=== PATIENT | female | born 1960 | race Caucasian/White ===

== ENCOUNTER 2016-08-03 22:05 | Emergency (ER) | payer BC ==
[2016-08-03 22:49] LABS: Hematocrit 42.6 % (37.0-47.0); Hemoglobin 14.1 gm/dL (12.5-16.0); Mean Cell Volume 85.7 fl (78-100); Mean Corpuscular Hemoglobin 28.4 pg (27-31); Mean Corpuscular Hgb Conc 33.1 g/dl (32-36); Mean Platelet Volume 9.4 fl (6.0-9.5); Neutrophil # 10.5 K/mm3 (1.3-6.0); Neutrophil % 69.7 % (42-75.0); Platelet Count 344 K/mm3 (150-450); Red Blood Count 4.97 M/mm3 (4.2-5.4); Red Cell Distribution Width 13.8 % (11.5-14.0)
[2016-08-03 23:08] LABS: Troponin I Less than 0.017 ng/ml (0.00-0.10)
[2016-08-03 23:12] LABS: ALT 33 U/L (19-67); AST 20 U/L (0-48); Albumin * 3.7 gm/dl (3.4-5.0); Alkaline Phosphatase * 111 U/L (50-170); Anion Gap 11.4 mmol/L (6.8-13.8); BUN/Creatinine Ratio 24.3 (9.0-21.6); Bilirubin, Total 0.1 mg/dL (0.0-1.1); Blood Urea Nitrogen 17 mg/dL (3-23); CK Total * 70 U/L (0-259); Ca. Corrected For Albumin 9.7 mg/dL (8.4-10.2); Calcium * 9.8 mg/dL (7.9-10.9); Carbon Dioxide 28.3 mmol/L (24-32.6); Chloride 105 mmol/L (97-106); Glucose * 119 mg/dL (70-110); Potassium 3.7 mmol/L (3.4-4.6); Sodium 141 mmol/L (132-142); Total Protein 8.1 gm/dL (6.2-8.2)
--- OUTSIDE RECORDS SUMMARY | 2016-08-03 23:19 | XMS REPORT | Continuity of Care Document ---
:1960 Author Organization [facility] ([facility]) Address [place] [address] Phone [phone] Care Team Providers Name Role Phone Provider, No-Primary Care Primary Care Provider Unavailable Source Comments This disclosure is being made pursuant to the Care Everywhere program, applicable federal and state laws, and may not contain all informaitonavailable regarding this patient.[facility] ([facility]) Active Allergies and Adverse Reactions Allergen Noted Date Severity Reactions Comments Erythromycin 10/01/2010 Nausea & Vomiting Current Medications Prescription Sig. Disp. Refills Start Date End Date Status LEVOTHYROXINE SODIUM Take 125 mcg by Active (SYNTHROID PO) mouth daily. Oval light pink or peach pill-patient unsure of dose aspirin 325 mg EC Take 1 Tab by mouth 60 Tab 0 12/10/2011 Active tablet daily. Indications: PAIN oxyCODONE-acetaminoph Take 1-2 Tabs by 80 Tab 0 12/22/2011 Active en 5-325 mg per mouth every 6 hours tablet as needed for Pain. Do Not exceed 4000 mg of acetaminophen per 24 hours. Indications: PAIN hydrOXYzine pamoate Take 1-2 Caps by 80 Cap 0 12/22/2011 Active (VISTARIL) 25 mg mouth every 6 hours capsule as needed for Other (pain). Indications: ANXIETY HYDROCODONE Take 5-325 mg by Active BIT/ACETAMINOPHEN mouth. (HYDROCODONE-ACETAMIN OPHEN PO) HYDROcodone-acetamino Take 1-2 tablets by 20 tablet 0 03/18/2015 Active phen 5-325 mg per mouth every 6 hours tablet as needed for pain. ondansetron 4 mg Dissolve 1 tablet 6 tablet 2 03/18/2015 Active disintegrating tablet (4 mg total) on or under the tongue every 6 hours as needed for nausea. Active Problems Problem Noted Date Shoulder pain 12/10/2011 Social History Tobacco Use Types Packs/Day Years Used Date Current Every Day Smoker 0.25 Smokeless Tobacco: Never Used Tobacco Cessation:Ready to Quit: No; Counseling Given: No Comments: Last Filed Vital Signs Vital Sign Reading Time Taken Blood Pressure 143/61 03/18/2015 9:13 AM CDT Pulse 76 03/18/2015 7:11 AM CDT Temperature 36.2 C (97.2 F) 03/18/2015 7:11 AM CDT Respiratory Rate 24 03/18/2015 7:11 AM CDT Height 1.6 m (5' 3") 12/10/2011 6:23 PM CDT Weight 65.772 kg (145 lb) 12/10/2011 6:23 PM CDT Body Mass Index 25.69 12/10/2011 6:23 PM CDT Oxygen Saturation 98% 03/18/2015 7:11 AM CDT Plan of Care Health Maintenance Due Date Last Done Comments HCV Screening 1960 Hepatitis B Vaccine (1 of 3 - Primary Series) 1960 Tdap Vaccine 1970 Lipid Disorder Screening 1977 MMR Vaccine 1977 Td Vaccine 1977 Pneumococcal Vaccine (1 of 1 - PPSV23) 1978 Cervical Cancer Screening 1989 Mammogram 1999 Colonoscopy 06/14/2009 Influenza Vaccine: Seasonal (#1) 12/31/2015 Results from Last 3 Months Not on file
--- NOTE | 2016-08-03 23:29 | ERNOTE ---
Chest Pain/Cardiac HPI Date of Service: 08/03/16 Chief Complaint: Palpitations Time Seen by Provider: 08/03/16 23:00 Immunizations: IMMUNIZATION HX Immunizations Up to Date Yes History of Influenza Vaccine Yes Allergies/Adverse Reactions: Allergies No Known Allergies Allergy (Unverified 08/03/16 22:22) Home Medications: HOME MEDICATIONS Aspirin [Aspirin Chewable] 81 mg PO DAILY 08/03/16 [Last Taken Unknown] Atorvastatin Calcium 20 mg PO HS 08/03/16 [Last Taken Unknown] Levothyroxine Sodium [Levo-T] 112 mcg PO DAILY 08/03/16 [Last Taken Unknown] Metformin HCl [Metformin HCl ER] 500 mg PO DAILY 08/03/16 [Last Taken Unknown] buPROPion HCL [Wellbutrin XL] 150 mg PO DAILY 08/03/16 [Last Taken Unknown] Narrative: PT SAYS THAT SHE WAS SITTING AT HOME ABOUT 2049 WHEN SHE HAS A FUNNY FEELING OVER HER BODY WITH NUMBNESS IN HER RIGHT JAW AREA AND FILLING FLUSHED ALL OVER . STATES SHE FELT WARM BUT NOT SWEATY AND WAS LIGHT HEADED. NO CHEST PAIN OR SOB. SHE FELT FOR HER PULSE AND THOUGHT IT FELT FAST BUT DID NOT COUNT IT. SHE TOOK HER BP SAYS IT WAS 200/100 BUT SHE DID NOT NOTE THE PULSE RATE. SHE SAYS SHE WAS JUST STARTED ON MEDS THIS PAST THURSDAY, 5 DAYS AGO. SEE THE MED LIST. SHE SAYS THAT HER BGM AT 1999 WAS 107 ( EMT REPORT ACCUCHECK OF 144 WHEN THEY ARRIVED. HER RECENT EVALUATION BY PCP ALSO SHOWED <50% NARROWING OF RIGHT CAROTID ARTERY. SHE STATES HER SYMPTOMS LASTED ABOUT 10-15 MINS. NOW SHE JUST FEELS TIRED. HER NORMAL BEDTIME IS 2200 Timing: resolved prior to arrival Severity/Quality: moderate Prior Treatment: Reports: recently seen, treated by physician Review of Systems - Review of Systems Constitutional: Present: See HPI EYE: Present: no symptoms reported ENT: Present: no symptoms reported Respiratory: Present: no symptoms reported Cardiology: Present: palpitations - PULSE FELT RAPID Gastrointestinal/Abdominal: Present: nausea. Absent: vomiting, diarrhea, abdominal pain Genitourinary: Present: no symptoms reported Musculoskeletal: Present: no symptoms reported Skin: Present: no symptoms reported Neurological: Present: See HPI, dizziness/light-headedness Endocrine: Present: no symptoms reported Hematologic/Lymphatic: Present: no symptoms reported Psych: Present: no symptoms reported All Other Systems: All systems neg except as marked - Patient's Past Medical History Patient History - Medical: Diabetes Type 2, Hypothyroidism Patient History - Cardiac/Respiratory: Hyperlipidemia Patient History - Cancer: No Hx of Cancer Patient History - Surgical Procedures: Cholecystectomy, , Tubal Ligation, Orthopedic - ORIF LEFT SHOULDER Patient History - Other: None LMP (females 10-50): Menopausal - Social History Living Situations: spouse Abuse History: No History of abuse Psych History: Hx of Depression Smoking Status: Current every day smoker Patient requests Smoking Cessation Consult: No Initiate information on Smoking Cessation: No Alcohol Use: none Drug Use: none - Immunizations Immunizations Up to Date: Yes History of Influenza Vaccine: Yes Physical Exam - Physical Exam General Appearance: Present: wd/wn, alert, no apparent distress Eye Exam: Normal inspection: bilateral, PERRL: bilateral, EOMI: bilateral Neck: Present: normal inspection, nontender Respiratory: Present: no respiratory distress, normal breath sounds, no accessory muscle use, chest nontender, lungs clear Cardiovascular/Chest: Present: regular rate, rhythm, no murmur, normal peripheral pulses Gastrointestinal/Abdominal: Present: normal bowel sounds, nontender, nondistended, soft, no organomegaly Back Exam: Present: normal inspection, no CVA tenderness Extremity Exam: Present: normal inspection, non-tender, normal range of motion, no edema Neurological Exam: Present: alert, oriented, normal mood/affect, 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 MONITOR = STEADY SINUS RHYTHM. PT AWARE WE ARE WAITING FOR 4 HOUR TROPONIN AND THAT INITIAL STUDIES WERE NEGATIVE. - Results and Orders Patient's Lab Results:: I have reviewed the patient's lab results. Results and Orders: NORMAL EXCEPT SL ELVATED WBC OF 15K. FIRST TROP = < 0.017. I ADDED A TSH WHICH IS LOW POSSIBLY INDICATING HER LEVOTHYROXINE DOSE IS A LITTLE TOO HIGH. HER 4 HOUR TROPONIN IS ALSO NEGATIVE. - Vital Signs Vital Signs: Vital Signs 08/03/16 08/03/16 22:05 22:18 Temperature 37.1 C Pulse Rate 82 83 Respiratory 22 H Rate Blood Pressure 149/53 O2 Sat by Pulse 95 Oximetry - EKG EKG: NSR, unchanged from - UNCHANGED FROM 03/21/2010 EKG read: Interp. by me - X-Ray X-Ray #1 X-Ray: chest - NO ACUTE ABNL . Interpretation: Interp. by me - Progress/Reassessment Chief Complaint: Palpitations Departure - Departure Clinical Impression: Heart palpitations Disposition: Home Follow Up Needed Condition: Good Instructions: Palpitations, [id number], Thyroid-Stimulating Hormone Test Additional Instructions: EXCEPT FOR A LOW TSH, SUGGESTING YOUR THYROID REPLACEMENT IS TOO HIGH, WE FIND NO OTHER ABNORMALITY TODAY. HOLD YOU MORNING LEVOTHYROXINE UNTIL YOU HAVE HAD A CHANCE TO TALK TO YOUR DR TOMORROW. HE MAY HAVE YOU DECREASE IT FURTHER AND MAY WANT TO SEE YOU FOR FURTHER EVALUATION. RETURN TO THE ER IF WORSE. IF YOU HAVE FEELINGS OF PALPITATIONS IN THE FUTURE, TAKE YOUR PULSE, HOW MANY BEATS PER MINUTE, AND TRY TO FEEL IF IT IS SMOOTH AND IRREGULAR BEATING OR IS IT IRREGULAR. WITH HEART RATES OVER 100 FOR NO REASON, EXERCISING OR HAVING A FEVER FOR EXAMPLE, YOU SHOULD GET TO THE ER SO WE CAN RECORD YOUR RHYTHM. Referrals: Chris Aviles MD [Primary Care Provider] -
[2016-08-04 02:32] VITALS: BP 145/53
== END 2016-08-04 03:41 | disposition home or self-care (01) ==
LOC: ER 22:05
DX: R00.2 Palpitations (principal); T38.1X5A Adverse effect of thyroid hormones and substitutes, initial encounter; Y92.009 Unspecified place in unspecified non-institutional (private) residence as the place of occurrence of the external cause; E03.9 Hypothyroidism, unspecified

== ENCOUNTER 2016-09-21 03:11 | Emergency (ER) | payer BC ==
--- NOTE | 2016-09-21 03:25 | ERNOTE ---
Medical Problem HPI - General Chief Complaint: Nausea/Vomiting Time Seen by Provider: 09/21/16 03:11 Source: patient Exam Limitations: no limitations - Immun/Allergies/Home Medications Immunizations: IMMUNIZATION HX Immunizations Up to Date Yes History of Influenza Vaccine Yes Allergies/Adverse Reactions: Allergies atorvastatin Allergy (Verified 09/21/16 02:49) erythromycin base Allergy (Verified 09/21/16 02:49) lisinopril Allergy (Verified 09/21/16 02:49) Home Medications: HOME MEDICATIONS Aspirin [Aspirin Chewable] 81 mg PO DAILY 08/03/16 [Last Taken Unknown] buPROPion HCL [Wellbutrin XL] 150 mg PO DAILY 08/03/16 [Last Taken Unknown] metFORMIN HCL [Metformin HCl ER] 500 mg PO DAILY 08/03/16 [Last Taken Unknown] Levothyroxine Sodium [Synthroid] 100 mcg PO DAILY 09/21/16 [Last Taken Unknown] - History of Present History Narrative: Patient woke up right after midnight nauseated, diaphoretic, had a few loose stools. She denies any chest pain or shortness of breath, no abdominal pain. A couple of months ago she had nausea after getting put on blood pressure medications but no diaphoresis, has been off blood pressure and cholesterol meds since. When she first started with her symptoms her blood pressure was running high. She is feeling better now after receiving zofran in the ambulance , but still not quite right Date (Duration): 09/21/16 Time (Timing): 00:05 Review of Systems - Review of Systems Constitutional: Absent: recent illness, fever ENT: Absent: nasal drainage, sore throat Respiratory: Absent: shortness of breath, cough Cardiology: Absent: chest pain Gastrointestinal/Abdominal: Present: nausea, diarrhea. Absent: vomiting, abdominal pain Genitourinary: Present: no symptoms reported Neurological: Present: numbness - left hand. Absent: headache - Patient's Past Medical History Patient History - Medical: Diabetes Type 2, Hypothyroidism Patient History - Cardiac/Respiratory: Hypertension, Hyperlipidemia Patient History - Cancer: No Hx of Cancer Patient History - Surgical Procedures: Cholecystectomy, , Tubal Ligation, Orthopedic Patient History - Other: None - Social History Living Situations: home Abuse History: No History of abuse Psych History: Hx of Depression Smoking Status: Former smoker Alcohol Use: none Drug Use: none - Immunizations Immunizations Up to Date: Yes History of Influenza Vaccine: Yes Physical Exam - Physical Exam General Appearance: Present: wd/wn, alert, no apparent distress, anxious Eye Exam: Normal inspection: bilateral Ears, Nose, Throat: Present: normal pharynx Respiratory: Present: no respiratory distress, normal breath sounds, no accessory muscle use, chest nontender, lungs clear Cardiovascular/Chest: Present: regular rate, rhythm, no murmur Gastrointestinal/Abdominal: Present: normal bowel sounds, nontender, nondistended, soft Extremity Exam: Present: no edema Neurological Exam: Present: alert, oriented, normal mood/affect Skin Exam: Present: normal color, warm/dry ED Progress - Results and Orders Patient's Lab Results:: I have reviewed the patient's lab results. - Vital Signs Patient's Vital Signs:: I have reviewed the patient's vital signs. Vital Signs: Vital Signs 09/21/16 09/21/16 02:43 03:16 Temperature 36.4 C L Pulse Rate 77 77 Respiratory 18 18 Rate Blood Pressure 139/65 148/58 O2 Sat by Pulse 94 93 Oximetry - EKG EKG: NSR, unchanged from, other - no acute changes EKG read: Interp. by me - Progress/Reassessment Chief Complaint: Nausea/Vomiting Progress Note-Subjective: 09/21/16 04:16 patient feeling better, currently no symptoms, discussed results WBC elevated but similar a month ago Departure - Departure Clinical Impression: Nausea Disposition: Home self-care Condition: Good Instructions: Nausea, Adult Additional Instructions: call Dr Aviles after the weekend for follow up return to the ER for any additional or worsening symptoms Referrals: Chris Aviles MD [Staff Physician] -
[2016-09-21 03:34] LABS: Hematocrit 45.6 % (37.0-47.0); Hemoglobin 14.8 gm/dL (12.5-16.0); Mean Cell Volume 86.5 fl (78-100); Mean Corpuscular Hemoglobin 28.1 pg (27-31); Mean Corpuscular Hgb Conc 32.5 g/dl (32-36); Mean Platelet Volume 9.3 fl (6.0-9.5); Neutrophil # 13.7 K/mm3 (1.3-6.0); Neutrophil % 82.9 % (42-75.0); Platelet Count 421 K/mm3 (150-450); Red Blood Count 5.27 M/mm3 (4.2-5.4); Red Cell Distribution Width 14.6 % (11.5-14.0); White Blood Count 16.5 K/mm3 (4.0-10.5)
[2016-09-21 03:55] LABS: ALT 32 U/L (19-67); AST 17 U/L (0-48); Albumin * 3.6 gm/dl (3.4-5.0); Alkaline Phosphatase * 121 U/L (50-170); Anion Gap 13.5 mmol/L (6.8-13.8); BUN/Creatinine Ratio 15.4 (9.0-21.6); Bilirubin, Total 0.2 mg/dL (0.0-1.1); Blood Urea Nitrogen 12 mg/dL (3-23); Ca. Corrected For Albumin 10.2 mg/dL (8.4-10.2); Calcium * 10.2 mg/dL (7.9-10.9); Carbon Dioxide 26.5 mmol/L (24-32.6); Chloride 105 mmol/L (97-106); Glucose * 126 mg/dL (70-110); Sodium 141 mmol/L (132-142); Total Protein 8.1 gm/dL (6.2-8.2); Troponin I Less than 0.017 ng/ml (0.00-0.10)
--- OUTSIDE RECORDS SUMMARY | 2016-09-21 04:22 | XMS REPORT | Continuity of Care Document ---
:1960 Author Organization [facility] ([facility]) Address [place] [address] Phone [phone] Care Team Providers Name Role Phone Provider, No-Primary Care Primary Care Provider Unavailable Source Comments This disclosure is being made pursuant to the Care Everywhere program, applicable federal and state laws, and may not contain all informaitonavailable regarding this patient.[facility] ([facility]) Active Allergies and Adverse Reactions [...]
[2016-09-21 04:26] VITALS: BP 142/49
== END 2016-09-21 04:28 | disposition home or self-care (01) ==
LOC: ER 03:11
DX: R11.0 Nausea (principal); E03.9 Hypothyroidism, unspecified; E11.9 Type 2 diabetes mellitus without complications

== ENCOUNTER 2016-10-10 08:24 | Emergency (ER) | payer BC ==
--- NOTE | 2016-10-10 08:42 | ERNOTE ---
<Violet Valdivia - Last Filed: 10/10/16 08:42> Chest Pain/Cardiac HPI Chief Complaint: Chest Pain Source: patient Exam Limitations: no limitations Immunizations: IMMUNIZATION HX Immunizations Up to Date Yes History of Influenza Vaccine No Hx Pneumococcal Vaccination No Allergies/Adverse Reactions: Allergies atorvastatin Allergy (Verified 10/10/16 08:40) erythromycin base Allergy (Verified 10/10/16 08:40) lisinopril Allergy (Verified 10/10/16 08:40) Home Medications: HOME MEDICATIONS Aspirin [Aspirin Chewable] 81 mg PO DAILY 08/03/16 [Last Taken Unknown] buPROPion HCL [Wellbutrin XL] 150 mg PO DAILY 08/03/16 [Last Taken Unknown] metFORMIN HCL [Metformin HCl ER] 500 mg PO DAILY 08/03/16 [Last Taken Unknown] Levothyroxine Sodium [Synthroid] 100 mcg PO DAILY 09/21/16 [Last Taken Unknown] ALPRAZolam [Xanax] 0.25 mg PO TID 10/10/16 [Last Taken Unknown] Narrative: pt had an episode of chest heaviness at 0800 but has NO symptoms now. Has a history of DM. She has no chest pains now. EKG upon presentation is NSR and pt is asymptomatic. - Patient's Past Medical History Patient History - Medical: Anxiety, Diabetes Type 2, Hypothyroidism Patient History - Cardiac/Respiratory: Hypertension, Hyperlipidemia Patient History - Cancer: No Hx of Cancer Patient History - Surgical Procedures: Cholecystectomy, , Tubal Ligation, Orthopedic Patient History - Other: None - Social History Living Situations: home Abuse History: No History of abuse Psych History: Hx of Anxiety, Hx of Depression Smoking Status: Former smoker Have you smoked in the past 12 months: Yes Smoking Stop Date: 08/19/16 Alcohol Use: none Drug Use: none - Immunizations Immunizations Up to Date: Yes Hx Pneumococcal Vaccination: No History of Influenza Vaccine: No ED Progress - Vital Signs Patient's Vital Signs:: I have reviewed the patient's vital signs. Vital Signs: Vital Signs 10/10/16 08:29 Temperature 36.5 C Pulse Rate 83 Respiratory 24 H Rate Blood Pressure 165/73 O2 Sat by Pulse 100 Oximetry - EKG EKG: NSR - Progress/Reassessment Chief Complaint: Chest Pain - Transfer of Care Physician Sign Out: Violet Valdivia Receiving Physician: Jarrell Quevedo Pending Results: CT/MRI results, Labs, X-ray results Departure - Departure Clinical Impression: Chest pain Qualifiers: Chest pain type: unspecified Qualified Code(s): R07.9 - Chest pain, unspecified Disposition: Home Follow Up Needed Condition: Good Instructions: Chest Pain Observation Additional Instructions: CONTACT YOUR FAMILY DOCTOR AND MAKE ARRANGEMENTS FOR RECHECK THEY MAY WANT YOU TO DO FURTHER EVALUATION AND THE E.R. EXAM TODAY DOES NOT TOTALLY RULE OUT THE POSSIBILITY OF YOU HAVING CORONARY ARTERY DISEASE THOUGH YOU HAVE NO EVIDENCE OF ANY ACUTE MYOCARDIAL INFARCTION. CALL THEM LATER TODAY TO SET UP FOLLOW UP. Referrals: Chris Aviles MD [Primary Care Provider] - <Jarrell Quevedo - Last Filed: 10/10/16 13:33> Chest Pain/Cardiac HPI Immunizations: IMMUNIZATION HX Immunizations Up to Date Yes History of Influenza Vaccine No Hx Pneumococcal Vaccination No ED Progress - Results and Orders Patient's Lab Results:: I have reviewed the patient's lab results. Results and Orders: LABS BASICALLY NORMAL WITH 1ST TROPONIN = 0.017. REPEAT , 4 HOUR TROPININ IS ALSO NEGATIVE. (>0.017) - Vital Signs Patient's Vital Signs:: I have reviewed the patient's vital signs. Vital Signs: Vital Signs 10/10/16 08:29 Temperature 36.5 C Pulse Rate 83 Respiratory 24 H Rate Blood Pressure 165/73 O2 Sat by Pulse 100 Oximetry - EKG EKG: NSR EKG read: Interp. by me - 1 - X-Ray X-Ray #1 X-ray Comments: Patient Patient Name:MARYBETH HANSEN Date: 1960 Sex: F Order Number: [id number] Unique Exam ID: [id number] Exam Requested: CXRPALAT - Chest PA Lateral * Date Scheduled: Study Priority: Requesting Service: Requesting Physician: Violet Valdivia Reason for Exam: Chest Pain Radiological Report : Exam Date: 10/10/2016 08:32 Ordering Physician: Violet Valdivia History: . Additional history provided by the technologist: Feeling weird. Shortness of breath. Sharp pain in cheondoism. Technique: Frontal and lateral views of the chest are evaluated. (2) views. Comparison: Prior exams, most recent is August 03, 2016 Findings: There are overlying ECG lead attachment sites. The lungs are symmetrically inflated. No focal consolidation. No pneumothorax or pleural effusion. Mild diffuse prominence of the interstitial lung markings with peribronchial thickening. The mediastinum , cardiac silhouette and pulmonary vascularity are within normal limits. The osseous structures are remarkable for degenerative changes. No acute osseous findings. Posttraumatic and postsurgical changes are noted about the left shoulder. Surgical clips are superimposed over the right upper quadrant. IMPRESSION: No focal consolidation. Mild nonspecific prominence of the interstitial lung markings. Electronically signed by Alvarez Levine D.O..
[2016-10-10 08:54] LABS: Hematocrit 46.2 % (37.0-47.0); Hemoglobin 15.3 gm/dL (12.5-16.0); Mean Cell Volume 84.5 fl (78-100); Mean Corpuscular Hgb Conc 33.1 g/dl (32-36); Mean Platelet Volume 9.7 fl (6.0-9.5); Neutrophil % 70.1 % (42-75.0); Platelet Count 317 K/mm3 (150-450); Red Blood Count 5.47 M/mm3 (4.2-5.4); Red Cell Distribution Width 14.5 % (11.5-14.0); White Blood Count 11.4 K/mm3 (4.0-10.5)
[2016-10-10 09:04] LABS: Prothrombin Time (Patient) 10.4 Seconds (9.4-11.4)
[2016-10-10 09:09] LABS: Hemoglobin A1C 6.1 % (4.00-6.0)
[2016-10-10 09:11] LABS: ALT 33 U/L (19-67); AST 19 U/L (0-48); Albumin * 3.6 gm/dl (3.4-5.0); Alkaline Phosphatase * 120 U/L (50-170); Anion Gap 16.4 mmol/L (6.8-13.8); Bilirubin, Total 0.2 mg/dL (0.0-1.1); Blood Urea Nitrogen 12 mg/dL (3-23); Carbon Dioxide 23.3 mmol/L (24-32.6); Chloride 105 mmol/L (97-106); Glucose * 106 mg/dL (70-110); Potassium 3.7 mmol/L (3.4-4.6); Sodium 141 mmol/L (132-142); Total Protein 7.8 gm/dL (6.2-8.2); Troponin I Less than 0.017 ng/ml (0.00-0.10)
--- OUTSIDE RECORDS SUMMARY | 2016-10-10 09:12 | XMS REPORT | Continuity of Care Document ---
:1960 Author Organization [facility] ([facility]) Address [place] [address] Phone [phone] Care Team Providers Name Role Phone Provider, No-Primary Care Primary Care Provider Unavailable Source Comments This disclosure is being made pursuant to the Care Everywhere program, applicable federal and state laws, and may not contain all informaitonavailable regarding this patient.[facility] ([facility]) Active Allergies and Adverse Reactions Allergen [...]
[2016-10-10 09:13] LABS: Partial Thrombolplastin Time 34.1 Seconds (24-32)
[2016-10-10] MEDS ORDERED: ACETAMINOPHEN 325 MG TABLET PO ONE (09:31)
[2016-10-10] MEDS ORDERED: ACETAMINOPHEN 325 MG TABLET ONE (09:31)
[2016-10-10 13:23] VITALS: BP 144/63
== END 2016-10-10 13:42 | disposition home or self-care (01) ==
LOC: ER 08:24
DX: R07.9 Chest pain, unspecified (principal); Z72.0 Tobacco use; E03.9 Hypothyroidism, unspecified; I10 Essential (primary) hypertension; E11.9 Type 2 diabetes mellitus without complications; E78.5 Hyperlipidemia, unspecified

== ENCOUNTER 2016-12-31 19:36 | Observation (INO) | payer BC ==
[2016-12-31] MEDS ORDERED: ASPIRIN 81 MG TAB.CHEW PO ONE (19:51)
[2016-12-31] MEDS ORDERED: NITROGLYCERIN 0.4 MG/TAB BTL SL ONE (19:51)
[2016-12-31] MEDS ORDERED: ASPIRIN 325 MG TABLET.DR ONE (19:54)
[2016-12-31] MEDS ORDERED: ASPIRIN 81 MG TAB.CHEW ONE (19:56)
--- NOTE | 2016-12-31 19:57 | ERNOTE ---
<Bri Waters - Last Filed: 12/31/16 19:59> Chest Pain/Cardiac HPI Chief Complaint: Chest Pain Time Seen by Provider: 12/31/16 19:41 Source: patient Exam Limitations: no limitations Immunizations: IMMUNIZATION HX Immunizations Up to Date Yes History of Influenza Vaccine No Hx Pneumococcal Vaccination No Allergies/Adverse Reactions: Allergies atorvastatin Allergy (Verified 12/31/16 19:48) erythromycin base Allergy (Verified 12/31/16 19:48) lisinopril Allergy (Verified 12/31/16 19:48) Home Medications: HOME MEDICATIONS Aspirin [Aspirin Chewable] 81 mg PO DAILY 08/03/16 [Last Taken Unknown] buPROPion HCL [Wellbutrin XL] 150 mg PO DAILY 08/03/16 [Last Taken Unknown] metFORMIN HCL [Metformin HCl ER] 500 mg PO DAILY 08/03/16 [Last Taken Unknown] Levothyroxine Sodium [Synthroid] 100 mcg PO DAILY 09/21/16 [Last Taken Unknown] ALPRAZolam [Xanax] 0.25 mg PO TID 10/10/16 [Last Taken Unknown] Narrative: Patient states that she has had intermittent chest pain since yesterday afternoon. The pain is under her right breast,comes and goes. last a few minutes , currently at 5/10, radiates to back, no associated symptoms Date (Duration): 12/30/16 Timing: intermittent Severity/Quality: moderate, sharp Location: other Chest Pain Radiation: back Activities at Onset: none Nitro Today/Relief: no nitro taken today Aspirin Treatment Today: 81 mg x 1 Associated Symptoms: Present: nausea. Absent: dizziness, syncope, shortness of breath, diaphoresis, palpitations, vomiting, abdominal pain Prior Chest Pain/Cardiac Workup: Reports: prior chest pain Review of Systems - Review of Systems Constitutional: Absent: recent illness, fever ENT: Absent: nose congestion, sore throat Respiratory: Absent: shortness of breath Cardiology: Present: See HPI, chest pain Gastrointestinal/Abdominal: Present: nausea. Absent: vomiting, diarrhea, abdominal pain Genitourinary: Present: no symptoms reported Musculoskeletal: Absent: back pain Neurological: Present: headache. Absent: weakness, numbness - Patient's Past Medical History Patient History - Medical: Anxiety, Diabetes Type 2, Hypothyroidism Patient History - Cardiac/Respiratory: Hypertension - not on medications as she can't tolerate them, Hyperlipidemia Patient History - Cancer: No Hx of Cancer Patient History - Surgical Procedures: Cholecystectomy, , Tubal Ligation, Orthopedic Patient History - Other: None LMP (females 10-50): Menopausal - Social History Living Situations: home Abuse History: No History of abuse Psych History: Hx of Anxiety, Hx of Depression Smoking Status: Former smoker Have you smoked in the past 12 months: Yes Alcohol Use: none Drug Use: none - Immunizations Immunizations Up to Date: Yes Hx Pneumococcal Vaccination: No History of Influenza Vaccine: No Physical Exam - Physical Exam General Appearance: Present: wd/wn, alert, no apparent distress, anxious Respiratory: Present: no respiratory distress, normal breath sounds, no accessory muscle use, chest nontender, lungs clear Cardiovascular/Chest: Present: regular rate, rhythm, no murmur Gastrointestinal/Abdominal: Present: normal bowel sounds, nontender, nondistended, soft Extremity Exam: Present: no edema Neurological Exam: Present: alert, oriented, normal mood/affect Skin Exam: Present: normal color, warm/dry ED Progress - Vital Signs Patient's Vital Signs:: I have reviewed the patient's vital signs. Vital Signs: Vital Signs 12/31/16 12/31/16 19:43 19:49 Temperature 37.5 C Pulse Rate 92 89 Respiratory 15 15 Rate Blood Pressure 136/62 136/62 O2 Sat by Pulse 97 97 Oximetry - EKG EKG: NSR, RBBB - incomplete, unchanged from 09/2016 EKG read: Interp. by me - Progress/Reassessment Chief Complaint: Chest Pain - Transfer of Care Physician Sign Out: Bri Waters Receiving Physician: Nghia Elias Pending Results: Labs, X-ray results Expected Disposition: Discharge Departure - Departure Clinical Impression: Chest pain Condition: Stable Referrals: Chris Aviles MD [Primary Care Provider] - <Nghia Elias - Last Filed: 12/31/16 21:23> Chest Pain/Cardiac HPI Immunizations: IMMUNIZATION HX Immunizations Up to Date Yes History of Influenza Vaccine No Hx Pneumococcal Vaccination No Physical Exam - Physical Exam Respiratory: Present: normal breath sounds, no accessory muscle use, lungs clear , chest tenderness - mild tenderness just to the right of the sternum along the lower edge of the costosternal junction Cardiovascular/Chest: Present: regular rate, rhythm, no murmur Gastrointestinal/Abdominal: Present: nontender, soft ED Progress - Results and Orders Patient's Lab Results:: I have reviewed the patient's lab results. Results and Orders: Laboratory Tests 12/31/16 12/31/16 20:00 20:00 WBC 14.9 H Hgb 14.4 Hct 42.8 Plt Count 328 Sodium 139 Potassium 3.9 Chloride 102 Carbon Dioxide 26.2 Anion Gap 14.7 H BUN 17 Creatinine 0.77 Random Glucose 111 H Calcium 9.6 Total Bilirubin 0.1 AST 14 ALT 24 Alkaline Phosphatase 112 Troponin I Less than 0.017 Total Protein 8.3 H Albumin 3.8 - Vital Signs Patient's Vital Signs:: I have reviewed the patient's vital signs. Vital Signs: Vital Signs 12/31/16 12/31/16 12/31/16 19:43 19:49 20:04 Temperature 37.5 C Pulse Rate 92 89 95 Respiratory 15 15 18 Rate Blood Pressure 136/62 136/62 128/62 O2 Sat by Pulse 97 97 97 Oximetry 12/31/16 12/31/16 12/31/16 20:34 20:54 21:12 Temperature Pulse Rate 86 87 86 Respiratory 18 18 18 Rate Blood Pressure 137/61 118/60 130/79 O2 Sat by Pulse 95 96 94 Oximetry - X-Ray X-Ray #1 X-Ray: chest Interpretation: Reviewed by me - no acute processes - Progress/Reassessment Progress:: Improved Progress Note-Subjective: 12/31/16 21:10 Chest pain was resolved by nitro. No pain at this time. Spoke with Juany NORIEGA about admit, she agrees to admit to [facility].
[2016-12-31 20:02] LABS: Hematocrit 42.8 % (37.0-47.0); Hemoglobin 14.4 gm/dL (12.5-16.0); Mean Cell Volume 83.6 fl (78-100); Mean Corpuscular Hemoglobin 28.1 pg (27-31); Mean Corpuscular Hgb Conc 33.6 g/dl (32-36); Mean Platelet Volume 9.3 fl (6.0-9.5); Neutrophil # 11.2 K/mm3 (1.3-6.0); Platelet Count 328 K/mm3 (150-450); Red Blood Count 5.12 M/mm3 (4.2-5.4); Red Cell Distribution Width 14.5 % (11.5-14.0); White Blood Count 14.9 K/mm3 (4.0-10.5)
[2016-12-31 20:22] LABS: ALT 24 U/L (19-67); AST 14 U/L (0-48); Albumin * 3.8 gm/dl (3.4-5.0); Alkaline Phosphatase * 112 U/L (50-170); Anion Gap 14.7 mmol/L (6.8-13.8); BUN/Creatinine Ratio 22.1 (9.0-21.6); Bilirubin, Total 0.1 mg/dL (0.0-1.1); Blood Urea Nitrogen 17 mg/dL (3-23); Ca. Corrected For Albumin 9.4 mg/dL (8.4-10.2); Calcium * 9.6 mg/dL (7.9-10.9); Carbon Dioxide 26.2 mmol/L (24-32.6); Chloride 102 mmol/L (97-106); Glucose * 111 mg/dL (70-110); Potassium 3.9 mmol/L (3.4-4.6); Sodium 139 mmol/L (132-142); Total Protein 8.3 gm/dL (6.2-8.2); Troponin I Less than 0.017 ng/ml (0.00-0.10)
[2016-12-31] MEDS ORDERED: NITROGLYCERIN 0.4 MG/TAB BTL SL PRN (21:44)
--- NOTE | 2016-12-31 22:10 | HP ---
Chief Complaint - Chief Complaint Date of Service: 12/31/16 Time of Service: 22:09 Chief Complaint: chest pain History of Present Illness: Jade is a 56 year old female patient of Dr. Aviles with a PMH of anxiety, hypothyroidism, DM T2, HTN and HLD who presented to the ER with c/o chest pain x24 hours located under right breast that radiated to back. During this time, patient also c/o tingling in hands and feet. states that she has had an increase in belching. denies nausea. denies abdominal pain. no dysuria but has had urinary frequency and states urine had a strong odor. ER eval revealed cbc remarkable for elevated wbc at 14.9. cmp unremarkable except for glucose at 111. troponin negative. Chest xray showed no acute cardiopulmonary process. EKG showed NSR with an incomplete RBBB that is unchanged from an EKG done 09/2016. Last TSH/free T4 done was 09/05/16 and came back ag 0.248/1.38 respectively. Patient to be admitted for chest pain of unknown etiology. - Patient's Past Medical History Patient History - Medical: Anxiety, Diabetes Type 2, Hypothyroidism Patient History - Cardiac/Respiratory: Hypertension - not on medications as she can't tolerate them, Hyperlipidemia Patient History - Cancer: No Hx of Cancer Patient History - Surgical Procedures: Cholecystectomy, , Tubal Ligation, Orthopedic Patient History - Other: None LMP (females 10-50): Menopausal - Family History Mother Family History - Medical: Other Family History - Cardiac/Respiratory: Cardiac Arrest, Myocardial Infarction Family History - Cancer: Other Father Family History - Medical: Family History - Cardiac/Respiratory: Aneurysm, CVA/Stroke, Myocardial Infarction, Other - Social History Living Situations: home Abuse History: No History of abuse Psych History: Hx of Anxiety, Hx of Depression Smoking Status: Former smoker Have you smoked in the past 12 months: Yes Alcohol Use: none Drug Use: none - Immunizations Immunizations Up to Date: Yes Hx Pneumococcal Vaccination: No History of Influenza Vaccine: No Review Of Systems (GEN) - Review of Systems Generalized/Overall Review: Present: No Symptoms Reported EENTM: Present: No Symptoms Reported Respiratory: Present: Shortness of Breath. Absent: Cough, Orthopnea, Stridor, Wheezing Cardiac: Present: Chest Pain. Absent: Edema, Syncope Abdominal: Present: No Symptoms Reported Genitourinary: Present: Frequency. Absent: Burning, Itching, Dysuria Musculoskeletal: Present: Back Pain Neurological: Present: No Symptoms Reported Skin: Present: No Symptoms Reported Endocrine: Present: No Symptoms Reported Misc: All systems neg except as marked Allergies/Adverse Reactions: Allergies Allergy/AdvReac Type Severity Reaction Status Date / Time atorvastatin Allergy Verified 12/31/16 19:48 erythromycin base Allergy Verified 12/31/16 19:48 lisinopril Allergy Verified 12/31/16 19:48 Home Medications: HOME MEDICATIONS Aspirin [Aspirin Chewable] 81 mg PO DAILY 08/03/16 [Last Taken Unknown] buPROPion HCL [Wellbutrin XL] 150 mg PO DAILY 08/03/16 [Last Taken Unknown] metFORMIN HCL [Metformin HCl ER] 500 mg PO DAILY 08/03/16 [Last Taken Unknown] Levothyroxine Sodium [Synthroid] 100 mcg PO DAILY 09/21/16 [Last Taken Unknown] ALPRAZolam [Xanax] 0.25 mg PO TID 10/10/16 [Last Taken Unknown] Exam - Exam Vital Signs: Vital Signs - Last Taken Temp 37.5 C 12/31/16 19:43 Pulse 81 12/31/16 21:34 Resp 18 12/31/16 21:34 BP 140/52 12/31/16 21:34 Pulse Ox 95 12/31/16 21:34 Constitutional: Present: Alert, Cooperative, No distress, Other - anxious ENT Exam: Present: hearing grossly normal Eye Exam: bilateral eye: normal inspection Neck: Present: full range of motion, supple Back Exam: Present: normal inspection, no CVA tenderness, no vertebral tenderness Breasts: Present: Exam deferred Respiratory: Present: lungs clear, normal breath sounds, no respiratory distress Cardiovascular/Chest: Present: normal peripheral pulses, regular rate, rhythm, no chest tenderness, no murmur Peripheral Pulses: carotid (R): 2+, carotid (L): 2+, dorsalis-pedis (R): 2+, dorsalis-pedis (L): 2+, radial (R): 2+, radial (L): 2+ Abdomen: Present: Normal bowel sounds, soft, nontender, nondistended /Rectal: Present: Exam deferred Extremity: Present: normal range of motion, non-tender, normal inspection Skin Exam: Present: normal color, warm/dry, no cyanosis Diagnostic Studies: Laboratory Results WBC 14.9 K/mm3 (4.0-10.5) H 12/31/16 20:00 RBC 5.12 M/mm3 (4.2-5.4) 12/31/16 20:00 Hgb 14.4 gm/dL (12.5-16.0) 12/31/16 20:00 Hct 42.8 % (37.0-47.0) 12/31/16 20:00 MCV 83.6 fl (78-100) 12/31/16 20:00 MCH 28.1 pg (27-31) 12/31/16 20:00 MCHC 33.6 g/dl (32-36) 12/31/16 20:00 RDW 14.5 % (11.5-14.0) H 12/31/16 20:00 Plt Count 328 K/mm3 (150-450) 12/31/16 20:00 MPV 9.3 fl (6.0-9.5) 12/31/16 20:00 Immature Gran % (Auto) 0.30 % (0.001-0.429) 12/31/16 20:00 Immature Gran # (Auto) 0.05 K/mm3 (0.000-0.0310) H 12/31/16 20:00 Neutrophils % 75.0 % (42-75.0) 12/31/16 20:00 Lymphocytes % 15.8 % (20-51) L 12/31/16 20:00 Monocytes % 7.9 % (0.0-9) 12/31/16 20:00 Eosinophils % 0.7 % (0.0-3.0) 12/31/16 20:00 Basophils % 0.3 % (0.0-1.0) 12/31/16 20:00 Nucleated RBC % 0.0 k/mm3 (0-1) 12/31/16 20:00 Neutrophils # 11.2 K/mm3 (1.3-6.0) H 12/31/16 20:00 Lymphocytes # 2.4 k/mm3 (1.5-3.5) 12/31/16 20:00 Monocytes # 1.2 k/mm3 (0.0-1.0) H 12/31/16 20:00 Eosinophils # 0.1 k/mm3 (0.0-0.7) 12/31/16 20:00 Absolute Basophils 0.0 k/mm3 (0.0-0.1) 12/31/16 20:00 Sodium 139 mmol/L (132-142) 12/31/16 20:00 Plasma Sodium 139 mmol/L (130-142) 12/31/16 20:00 Potassium 3.9 mmol/L (3.4-4.6) 12/31/16 20:00 Chloride 102 mmol/L (97-106) 12/31/16 20:00 Carbon Dioxide 26.2 mmol/L (24-32.6) 12/31/16 20:00 Anion Gap 14.7 mmol/L (6.8-13.8) H 12/31/16 20:00 BUN 17 mg/dL (3-23) 12/31/16 20:00 Creatinine 0.77 mg/dL (0.4-1.4) 12/31/16 20:00 Est GFR (Non-Af Amer) 82 mL/min (60-130) 12/31/16 20:00 BUN/Creatinine Ratio 22.1 (9.0-21.6) H 12/31/16 20:00 Random Glucose 111 mg/dL (70-110) H 12/31/16 20:00 Calcium 9.6 mg/dL (7.9-10.9) 12/31/16 20:00 Calcium Adj for Albumin 9.4 mg/dL (8.4-10.2) 12/31/16 20:00 Total Bilirubin 0.1 mg/dL (0.0-1.1) 12/31/16 20:00 AST 14 U/L (0-48) 12/31/16 20:00 ALT 24 U/L (19-67) 12/31/16 20:00 Alkaline Phosphatase 112 U/L (50-170) 12/31/16 20:00 Troponin I Less than 0.017 ng/ml (0.00-0.10) 12/31/16 20:00 Total Protein 8.3 gm/dL (6.2-8.2) H 12/31/16 20:00 Albumin 3.8 gm/dl (3.4-5.0) 08/02/17 20:00 Assessment/Plan - Narrative Narrative: Chest pain of unknown etiology - ? etiology - reflux vs anxiety vs other - tingling in hands and feet leads towards anxiety - xanax tid as home med - increased belching leads towards reflux - try 1 dose iv protonix tonight - has multiple risk factors - including family history heart disease, tobacco abuse, diabetes, htn, hld. - monitor on telemetry - vital signs q 4 hours - trend troponin / ekg - if troponin / ekg remain WNL - recommend outpatient echo and stress test. - given history of hypothyroidism, will check tsh/free t4 as a cause for her chest pain leukocytosis - patient states wbc elevated for last 6 months - given patient's report of urinary frequency and urine odor, will check UA and culture. Diabetes - continue metformin - accu-checks QID with sliding scale as needed hypothyroid - continue synthroid - check tsh / free t4 anxiety - continue xanax Code status: Full Code VTE: early ambulation GI proph: one dose iv protonix given symptoms. - Assessment/Plan (1) Chest pain of unknown etiology Problem: Acute (2) Leukocytosis Problem: Acute Qualifiers: Leukocytosis type: unspecified Qualified Code(s): D72.829 - Elevated white blood cell count, unspecified (3) Anxiety Problem: Chronic (4) Diabetes Problem: Chronic Qualifiers: Diabetes mellitus type: type 2 Diabetes mellitus complication status: with unspecified complications Diabetes mellitus termite helper insulin use: without termite helper use Qualified Code(s): E11.8 - Type 2 diabetes mellitus with unspecified complications (5) Hypothyroid Problem: Chronic Qualifiers: Hypothyroidism type: unspecified Qualified Code(s): E03.9 - Hypothyroidism , unspecified (6) HTN (hypertension) Problem: Chronic Qualifiers: Hypertension type: essential hypertension Qualified Code(s): I10 - Essential (primary) hypertension (7) HLD (hyperlipidemia) Problem: Chronic Qualifiers: Hyperlipidemia type: unspecified Qualified Code(s): E78.5 - Hyperlipidemia , unspecified
[2016-12-31 22:17] LABS: T4 Free * 1.05 ng/dL (0.76-1.46); TSH * 1.545 uIU/mL (0.358-3.74)
[2016-12-31 22:39] LABS: Urine Bilirubin Negative (NEGATIVE); Urine Blood 25 /ul (NEGATIVE); Urine Ketone Negative (NEGATIVE); Urine Nitrite Negative (NEGATIVE); Urine Protein Negative (NEGATIVE); Urine Urobilinogen Normal (NORMAL)
[2016-12-31 22:49] LABS: Urine Appearance Clear; Urine Bacteria 2+; Urine Color Pale Yellow; Urine RBC None Seen /hpf (0-5); Urine WBC 0-5 /hpf (0-5)
[2016-12-31] MEDS: ALPRAZolam 0.25 MG TABLET PO SCH (23:00)
[2016-12-31] MEDS ORDERED: PANTOPRAZOLE SODIUM 40 MG in NORMAL SALINE 100 ML IV ONE (23:22)
--- NOTE | 2017-01-01 06:59 | DS ---
(1) Intermittent claudication of both lower extremities due to atherosclerosis Problem: Acute (2) Chest pain of unknown etiology Problem: Acute (3) Leukocytosis Problem: Acute Qualifiers: Leukocytosis type: unspecified Qualified Code(s): D72.829 - Elevated white blood cell count, unspecified (4) Diabetes Problem: Chronic Qualifiers: Diabetes mellitus type: type 2 Diabetes mellitus complication status: with unspecified complications Diabetes mellitus intermediate card tender insulin use: without intermediate card tender use Qualified Code(s): E11.8 - Type 2 diabetes mellitus with unspecified complications (5) HLD (hyperlipidemia) Problem: Chronic Qualifiers: Hyperlipidemia type: unspecified Qualified Code(s): E78.5 - Hyperlipidemia , unspecified (6) HTN (hypertension) Problem: Chronic Qualifiers: Hypertension type: essential hypertension Qualified Code(s): I10 - Essential (primary) hypertension (7) Hypothyroid Problem: Chronic Qualifiers: Hypothyroidism type: unspecified Qualified Code(s): E03.9 - Hypothyroidism , unspecified Description of Stay: Pt. admitted for chest pain r/o AMI, which she did based on repeat Troponin I's that were normal. Her sx were definitely concerning for possible angina given sx did worsen with activity and were associated with SOB, nausea, fatigue and elevated BP at home. She also described sx c/w Intermittant claudications which would be further evidence of atherosclerosis. With history of DM, hyperlipidemia, HTN and strong FH of coronary artery disease in her Mom, it was appropriate to observe her to be sure she wasn't having an AMI. I am still not convinced this isn't cardiac in nature, given all her other sx and health issues , but further testing will be planned and scheduled outpt to include: Nuclear treadmill (will try to schedule prior to d/c) MELISA's due to intermittant claudications Tx for possible UTI with repeat CBC at f/u, which if still elevated would get peripheral smear and possibly flow cytometry. Because of concern for this being anginal in nature will be sure she has nitroglycerin on hand, Rx will be given. For her HLD she has not been able to tolerate a statin in the past due to severe myalgias, which is why she is not being d/c'd on statin. Procedures Performed: none Discharge Disposition: Home self care Disposition: Home self-care Condition: Fair Discharge Activity: Activity as tolerated Discharge Diet: Consistent carbs Referrals: Chris Aviles MD [Primary Care Provider] - 01/12/17 Prescriptions (Any new or edited meds): Nitroglycerin [Nitrostat] 0.4 mg SL PRN PRN #20 btl PRN Reason: Chest Pain Complete Home Medications List: Complete Home Medication List: Aspirin [Aspirin Chewable] 81 mg PO DAILY 08/03/16 buPROPion HCL [Wellbutrin Xl] 150 mg PO DAILY 08/03/16 metFORMIN HCL [Metformin HCl ER] 500 mg PO DAILY 08/03/16 Levothyroxine Sodium [Synthroid] 100 mcg PO DAILY 09/21/16 ALPRAZolam [Xanax] 0.25 mg PO TID 10/10/16 Nitroglycerin [Nitrostat] 0.4 mg SL PRN PRN #20 btl 01/01/17
[2017-01-01] MEDS ORDERED: INSULIN LISPRO 100 UNITS/ML VIAL SC SCH (07:00)
[2017-01-01] MEDS ORDERED: LEVOTHYROXINE SODIUM 100 MCG TABLET PO SCH (07:00)
[2017-01-01] MEDS: ALPRAZolam 0.25 MG TABLET PO SCH (07:01)
[2017-01-01 07:45] VITALS: BP 109/46
[2017-01-01] MEDS ORDERED: ASPIRIN 81 MG TAB.CHEW PO SCH (09:00)
[2017-01-01] MEDS ORDERED: buPROPion HCL 150 MG TAB.SR.24H PO SCH (09:00)
== END 2017-01-01 08:30 | disposition home or self-care (01) ==
LOC: ER 19:36 → MS 21:18
PROVIDERS: ADMIT Nurse Practitioner Critical Care Medicine; ATTEND Family Medicine
DX: R07.9 Chest pain, unspecified (principal); I70.219 Atherosclerosis of native arteries of extremities with intermittent claudication, unspecified extremity; Z87.891 Personal history of nicotine dependence; D72.829 Elevated white blood cell count, unspecified; E11.8 Type 2 diabetes mellitus with unspecified complications; E78.5 Hyperlipidemia, unspecified; I10 Essential (primary) hypertension; E03.9 Hypothyroidism, unspecified
CPT/HCPCS: 36415; 71020; 80053; 81001; 84439; 84443; 84484; 85025; 87077; 87086; 87186; 93005; 96365; 99284; G0378

== ENCOUNTER 2017-01-09 09:10 | Emergency (ER) | payer BC ==
[2017-01-09 09:51] LABS: Hematocrit 44.4 % (37.0-47.0); Hemoglobin 14.8 gm/dL (12.5-16.0); Mean Cell Volume 84.4 fl (78-100); Mean Corpuscular Hemoglobin 28.1 pg (27-31); Mean Corpuscular Hgb Conc 33.3 g/dl (32-36); Mean Platelet Volume 9.1 fl (6.0-9.5); Neutrophil # 6.6 K/mm3 (1.3-6.0); Neutrophil % 69.7 % (42-75.0); Platelet Count 407 K/mm3 (150-450); Red Blood Count 5.26 M/mm3 (4.2-5.4); Red Cell Distribution Width 14.2 % (11.5-14.0); White Blood Count 9.5 K/mm3 (4.0-10.5)
[2017-01-09 10:09] LABS: ALT 21 U/L (19-67); AST 14 U/L (0-48); Albumin * 3.7 gm/dl (3.4-5.0); Alkaline Phosphatase * 115 U/L (50-170); Anion Gap 14.3 mmol/L (6.8-13.8); BUN/Creatinine Ratio 14.5 (9.0-21.6); Bilirubin, Total 0.3 mg/dL (0.0-1.1); Blood Urea Nitrogen 11 mg/dL (3-23); Ca. Corrected For Albumin 10.1 mg/dL (8.4-10.2); Calcium * 10.2 mg/dL (7.9-10.9); Carbon Dioxide 25.6 mmol/L (24-32.6); Chloride 104 mmol/L (97-106); Glucose * 105 mg/dL (70-110); Potassium 3.9 mmol/L (3.4-4.6); Sodium 140 mmol/L (132-142); Total Protein 8.4 gm/dL (6.2-8.2); Troponin I Less than 0.017 ng/ml (0.00-0.10)
[2017-01-09 10:58] LABS: Urine Bilirubin Negative (NEGATIVE); Urine Ketone Negative (NEGATIVE); Urine Nitrite Negative (NEGATIVE); Urine Protein Negative (NEGATIVE); Urine Specific Gravity <=1.005 SP.GR. (1.005-1.010); Urine Urobilinogen Normal (NORMAL)
[2017-01-09 10:59] LABS: Urine Appearance Clear; Urine Bacteria None Seen; Urine Blood 5 /ul (NEGATIVE); Urine Color Yellow; Urine RBC None Seen /hpf (0-5); Urine WBC None Seen /hpf (0-5)
--- NOTE | 2017-01-09 11:13 | ERNOTE ---
Medical Problem HPI - Narrative Date of Service: 01/09/17 - patient relates bp elevated all night, took ativan bp improved - General Chief Complaint: Screening, Blood Pressure Time Seen by Provider: 01/09/17 09:31 Source: patient Exam Limitations: no limitations - Immun/Allergies/Home Medications Immunizations: IMMUNIZATION HX Immunizations Up to Date Yes History of Influenza Vaccine No Hx Pneumococcal Vaccination No Allergies/Adverse Reactions: Allergies atorvastatin Allergy (Verified 01/09/17 09:32) azithromycin Allergy (Verified 01/09/17 09:32) erythromycin base Allergy (Verified 01/09/17 09:32) lisinopril Allergy (Verified 01/09/17 09:32) Home Medications: HOME MEDICATIONS Aspirin [Aspirin Chewable] 81 mg PO DAILY 08/03/16 [Last Taken Unknown] buPROPion HCL [Wellbutrin Xl] 150 mg PO DAILY 08/03/16 [Last Taken Unknown] metFORMIN HCL [Metformin HCl ER] 500 mg PO DAILY 08/03/16 [Last Taken Unknown] Levothyroxine Sodium [Synthroid] 112 mcg PO DAILY 09/21/16 [Last Taken Unknown] ALPRAZolam [Xanax] 0.25 mg PO TID 10/10/16 [Last Taken Unknown] Nitroglycerin [Nitrostat] 0.4 mg SL PRN PRN #20 btl 01/01/17 [Last Taken Unknown ] - History of Present History Narrative: bp elevated all night has improved Timing: resolved prior to arrival Severity: moderate Modifying Factors - (Worsens): Present: other - nothing Review of Systems - Review of Systems Constitutional: Present: weakness, fatigue EYE: Present: no symptoms reported ENT: Present: no symptoms reported Respiratory: Present: no symptoms reported Cardiology: Present: no symptoms reported Gastrointestinal/Abdominal: Present: no symptoms reported Genitourinary: Present: no symptoms reported Musculoskeletal: Present: no symptoms reported Skin: Present: no symptoms reported Neurological: Present: no symptoms reported Endocrine: Present: no symptoms reported Hematologic/Lymphatic: Present: no symptoms reported Psych: Present: anxiety All Other Systems: All systems neg except as marked - Patient's Past Medical History Patient History - Medical: Anxiety, Diabetes Type 2, Hypothyroidism Patient History - Cardiac/Respiratory: Hypertension, Hyperlipidemia Patient History - Cancer: No Hx of Cancer Patient History - Surgical Procedures: Cholecystectomy, , Tubal Ligation, Orthopedic Patient History - Other: None LMP (females 10-50): Menopausal - Family History Family History:: no untoward family reactions to anesthesia, no familial bleeding tendencies - Family History Mother Family History - Medical: Other Family History - Cardiac/Respiratory: Cardiac Arrest, Myocardial Infarction Family History - Cancer: Other Father Family History - Medical: Family History - Cardiac/Respiratory: Aneurysm, CVA/Stroke, Myocardial Infarction, Other - Social History Living Situations: home Abuse History: No History of abuse Psych History: Hx of Anxiety, Hx of Depression Smoking Status: Current some day smoker Have you smoked in the past 12 months: Yes Patient requests Smoking Cessation Consult: No Initiate information on Smoking Cessation: No Alcohol Use: none Drug Use: none - Immunizations Immunizations Up to Date: Yes Hx Pneumococcal Vaccination: No History of Influenza Vaccine: No Physical Exam - Physical Exam General Appearance: Present: alert, mild distress Head Exam: Present: normal inspection, no evidence of injury Eye Exam: Normal inspection: bilateral, PERRL: bilateral, EOMI: bilateral Ears, Nose, Throat: Present: normal ENT inspection Neck: Present: normal inspection, nontender Respiratory: Present: no respiratory distress, normal breath sounds, no accessory muscle use, chest nontender, lungs clear Cardiovascular/Chest: Present: regular rate, rhythm, no murmur, normal peripheral pulses Peripheral Pulses: N=norm/S=strong/W=weak/B=bound/A=absent: Carotid (R): Normal , Carotid (L): Normal, Radial (R): Normal, Radial (L): Normal, Femoral (R): Normal, Femoral (L): Normal, Dorsalis-pedis (R): Normal, Dorsalis-pedis (L): Normal Gastrointestinal/Abdominal: Present: normal bowel sounds, nontender, nondistended, soft, no organomegaly Back Exam: Present: normal inspection, normal range of motion, no CVA tenderness , no vertebral tenderness Extremity Exam: Present: normal inspection, non-tender, normal range of motion, no edema Neurological Exam: Present: alert, oriented, normal mood/affect DTR: N=norm/NB=norm/brisk/A=abs/DD=dull/dimin/HC=hyperactive: Bicep (R): Normal , Bicep (L): Normal, Tricep (R): Normal, Tricep (L): Normal, Knee (R): Normal, Knee (L): Normal, Ankle (R): Normal, Ankle (L): Normal Skin Exam: Present: normal color, warm/dry Lymphatic Exam: Present: no adenopathy ED Progress - Results and Orders Patient's Lab Results:: I have reviewed the patient's lab results. - Vital Signs Patient's Vital Signs:: I have reviewed the patient's vital signs. Vital Signs: Vital Signs 01/09/17 01/09/17 01/09/17 09:10 09:30 10:45 Temperature 36.4 C L 36.4 C L Pulse Rate 81 Respiratory 18 Rate Blood Pressure 123/80 147/79 147/79 O2 Sat by Pulse 99 Oximetry 01/09/17 10:46 Temperature Pulse Rate 74 Respiratory 16 Rate Blood Pressure 125/66 O2 Sat by Pulse 98 Oximetry - Progress/Reassessment Chief Complaint: Screening, Blood Pressure Progress:: Improved - Transfer of Care Expected Disposition: Discharge Departure - Departure Clinical Impression: Hypertension, Anxiety Disposition: [facility] in [place] Condition: Good Instructions: Hypertension, [id number], Panic Attacks, [id number] Referrals: Chris Aviles MD [Primary Care Provider] -
[2017-01-09 16:36] VITALS: BP 125/66
== END 2017-01-09 11:22 | disposition short-term general hospital (02) ==
LOC: ER 09:10
DX: I10 Essential (primary) hypertension (principal); F41.9 Anxiety disorder, unspecified; E03.9 Hypothyroidism, unspecified; E11.9 Type 2 diabetes mellitus without complications; F17.200 Nicotine dependence, unspecified, uncomplicated

== ENCOUNTER 2017-03-03 18:28 | Emergency (ER) | payer BC ==
[2017-03-03] MEDS ORDERED: SUCRALFATE 1 G/10 ML UDC PO ONE (18:49)
[2017-03-03] MEDS ORDERED: ONDANSETRON 4 MG TAB.RAPDIS PO ONE (18:49)
[2017-03-03] MEDS ORDERED: MAG HYDROX/ALUMINUM HYD/SIMETH 30 ML UDC PO ONE (18:49)
[2017-03-03] MEDS ORDERED: LIDOCAINE HCL 20 ML UDC PO ONE (18:49)
[2017-03-03] MEDS ORDERED: ONDANSETRON 4 MG TAB.RAPDIS ONE (18:52)
[2017-03-03 19:13] LABS: Hematocrit 44.8 % (37.0-47.0); Hemoglobin 14.9 gm/dL (12.5-16.0); Mean Corpuscular Hemoglobin 28.3 pg (27-31); Mean Corpuscular Hgb Conc 33.3 g/dl (32-36); Mean Platelet Volume 9.6 fl (6.0-9.5); Neutrophil # 7.1 K/mm3 (1.3-6.0); Neutrophil % 68.3 % (42-75.0); Platelet Count 333 K/mm3 (150-450); Red Blood Count 5.27 M/mm3 (4.2-5.4); Red Cell Distribution Width 14.2 % (11.5-14.0); White Blood Count 10.3 K/mm3 (4.0-10.5)
--- NOTE | 2017-03-03 19:18 | ERNOTE ---
Abdominal HPI - Narrative Date of Service: 03/03/17 - General Chief Complaint: Abdominal Pain Time Seen by Provider: 03/03/17 18:41 Source: patient Exam Limitations: no limitations - Immun/Allergies/Home Medications Immunizatons: IMMUNIZATION HX Immunizations Up to Date Yes History of Influenza Vaccine No Hx Pneumococcal Vaccination No Allergies/Adverse Reactions: Allergies atorvastatin Allergy (Verified 03/03/17 18:38) azithromycin Allergy (Verified 03/03/17 18:38) erythromycin base Allergy (Verified 03/03/17 18:38) lisinopril Allergy (Verified 03/03/17 18:38) Home Medications: HOME MEDICATIONS Aspirin [Aspirin Chewable] 81 mg PO DAILY 08/03/16 [Last Taken Unknown] buPROPion HCL [Wellbutrin Xl] 150 mg PO DAILY 08/03/16 [Last Taken Unknown] Levothyroxine Sodium [Synthroid] 112 mcg PO DAILY 09/21/16 [Last Taken Unknown] ALPRAZolam [Xanax] 0.25 mg PO TID 10/10/16 [Last Taken Unknown] Nitroglycerin [Nitrostat] 0.4 mg SL PRN PRN #20 btl 01/01/17 [Last Taken Unknown ] Ranitidine HCl [Zantac] 150 mg PO BID #60 tab 03/03/17 [Last Taken Unknown] - History of Present Illness Narrative: Pt. comes in with c/o LUQ pain for two days that radiates to her back and into her mid sternum. Pt. states that she just feels like something that is not right, so she decided to come in. Pt. denies any vomiting, sob, cp, fever, diarrhea, constipation, alleviating factors or prehospital treatment. Pt. does state that sitting exacerbates the pain Review of Systems - Review of Systems Constitutional: Present: no symptoms reported. Absent: recent illness, fever, chills, weakness, fatigue, malaise EYE: Present: no symptoms reported ENT: Present: no symptoms reported Respiratory: Present: no symptoms reported. Absent: shortness of breath, cough , wheezing Cardiology: Present: chest pain. Absent: palpitations, edema Gastrointestinal/Abdominal: Present: nausea, abdominal pain. Absent: vomiting, diarrhea, constipation Genitourinary: Present: no symptoms reported Musculoskeletal: Present: no symptoms reported. Absent: back pain, joint pain Skin: Absent: no symptoms reported, rash, change in color Neurological: Present: no symptoms reported. Absent: headache, dizziness/light- headedness, numbness, tingling All Other Systems: All systems neg except as marked - Patient's Past Medical History Patient History - Medical: Anxiety, Diabetes Type 2, Hypothyroidism Patient History - Cardiac/Respiratory: Hypertension, Hyperlipidemia Patient History - Cancer: No Hx of Cancer Patient History - Surgical Procedures: Cholecystectomy, , Tubal Ligation, Orthopedic Patient History - Other: None - Family History Mother Family History - Medical: Other Family History - Cardiac/Respiratory: Cardiac Arrest, Myocardial Infarction Family History - Cancer: Other Father Family History - Medical: Family History - Cardiac/Respiratory: Aneurysm, CVA/Stroke, Myocardial Infarction, Other - Social History Living Situations: home Abuse History: No History of abuse Psych History: Hx of Anxiety, Hx of Depression, Current tx/ever been on anti- depressants or anti-anxiety meds Smoking Status: Former smoker Have you smoked in the past 12 months: Yes Alcohol Use: none Drug Use: none - Immunizations Immunizations Up to Date: Yes Hx Pneumococcal Vaccination: No History of Influenza Vaccine: No Physical Exam - Physical Exam General Appearance: Present: wd/wn, alert, no apparent distress Head Exam: Present: normal inspection, no evidence of injury Eye Exam: Normal inspection: bilateral, PERRL: bilateral, EOMI: bilateral Ears, Nose, Throat: Present: normal ENT inspection, normal pharynx Neck: Present: normal inspection, nontender. Absent: lymphadenopathy (R), lymphadenopathy (L) Respiratory: Present: no respiratory distress, normal breath sounds, no accessory muscle use, chest nontender, lungs clear. Absent: crackles, rales, rhonchi, stridor, wheezing Cardiovascular/Chest: Present: regular rate, rhythm, no murmur, normal peripheral pulses Gastrointestinal/Abdominal: Present: normal bowel sounds, nondistended, soft, no organomegaly, tenderness - LUQ and mud upper epigastric Back Exam: Present: normal inspection, normal range of motion, no CVA tenderness , no vertebral tenderness Extremity Exam: Present: normal inspection, non-tender, normal range of motion, no edema Neurological Exam: Present: alert, oriented, normal mood/affect, no motor/ sensory deficits, squad sergeant II-XII nml as tested, normal cerebellar test Skin Exam: Present: normal color, warm/dry. Absent: pallor, skin rash ED Progress - Date and Time Seen: Date and Time: 03/03/17 19:55 Pt. pain improved with GI cocktail will have her start on antacid and follow up with her PCP. - Results and Orders Patient's Lab Results:: I have reviewed the patient's lab results. - Vital Signs Patient's Vital Signs:: I have reviewed the patient's vital signs. Vital Signs: Vital Signs 03/03/17 18:31 Temperature 36.9 C Pulse Rate 78 Respiratory 18 Rate Blood Pressure 132/91 O2 Sat by Pulse 98 Oximetry - EKG EKG: NSR EKG read: Reviewed by me EKG Comments: No acute interp by Dr Waters - Progress/Reassessment Chief Complaint: Abdominal Pain Progress:: Improved Departure Clinical Impression: GERD with esophagitis Gastritis Qualifiers: Gastritis type: unspecified gastritis Chronicity: acute Gastritis bleeding: without bleeding Qualified Code(s): K29.00 - Acute gastritis without bleeding - Departure Disposition: Home self-care Condition: Good Instructions: Gastritis, Adult, [id number] Additional Instructions: Please follow up with primary provider in 2-3 days. Please start medicines and discuss further testing with PCP. Referrals: Chris Aviles MD [Primary Care Provider] - Prescriptions: Ranitidine HCl [Zantac] 150 mg PO BID #60 tab
[2017-03-03 19:26] LABS: Urine Bilirubin Negative (NEGATIVE); Urine Ketone Negative (NEGATIVE); Urine Nitrite Negative (NEGATIVE); Urine Protein Negative (NEGATIVE); Urine Specific Gravity <=1.005 SP.GR. (1.005-1.010); Urine Urobilinogen Normal (NORMAL)
[2017-03-03 19:34] LABS: ALT 28 U/L (19-67); AST 17 U/L (0-48); Albumin * 3.8 gm/dl (3.4-5.0); Alkaline Phosphatase * 129 U/L (50-170); Amylase * 42 U/L (25-115); Anion Gap 13.4 mmol/L (6.8-13.8); BUN/Creatinine Ratio 16.7 (9.0-21.6); Bilirubin, Total 0.2 mg/dL (0.0-1.1); Blood Urea Nitrogen 13 mg/dL (3-23); Ca. Corrected For Albumin 9.5 mg/dL (8.4-10.2); Calcium * 9.7 mg/dL (7.9-10.9); Carbon Dioxide 26.6 mmol/L (24-32.6); Chloride 103 mmol/L (97-106); Glucose * 116 mg/dL (70-110); Lipase 140 U/L (73-393); Sodium 139 mmol/L (132-142); Total Protein 8.4 gm/dL (6.2-8.2); Troponin I Less than 0.017 ng/ml (0.00-0.10)
[2017-03-03 19:40] LABS: Urine Appearance Clear; Urine Bacteria TRACE; Urine Blood 5 /ul (NEGATIVE); Urine Color Pale Yellow; Urine RBC TRACE /hpf (0-5); Urine WBC None Seen /hpf (0-5)
[2017-03-03 20:15] VITALS: BP 147/67
== END 2017-03-03 20:09 | disposition home or self-care (01) ==
LOC: ER 18:28
DX: K21.0 Gastro-esophageal reflux disease with esophagitis (principal); K29.00 Acute gastritis without bleeding; F17.200 Nicotine dependence, unspecified, uncomplicated

== ENCOUNTER 2017-03-06 21:35 | Emergency (ER) | payer BC ==
--- NOTE | 2017-03-06 21:52 | ERNOTE ---
Chest Pain/Cardiac HPI Chief Complaint: Chest Pain Time Seen by Provider: 03/06/17 21:51 Source: patient, EMS, RN notes reviewed Exam Limitations: no limitations Immunizations: IMMUNIZATION HX Immunizations Up to Date Yes History of Influenza Vaccine No Hx Pneumococcal Vaccination No Allergies/Adverse Reactions: Allergies atorvastatin Allergy (Verified 03/03/17 18:38) azithromycin Allergy (Verified 03/03/17 18:38) erythromycin base Allergy (Verified 03/03/17 18:38) lisinopril Allergy (Verified 03/03/17 18:38) Home Medications: HOME MEDICATIONS Aspirin [Aspirin Chewable] 81 mg PO DAILY 08/03/16 [Last Taken Unknown] buPROPion HCL [Wellbutrin Xl] 150 mg PO DAILY 08/03/16 [Last Taken Unknown] Levothyroxine Sodium [Synthroid] 100 mcg PO DAILY 09/21/16 [Last Taken Unknown] ALPRAZolam [Xanax] 0.25 mg PO TID 10/10/16 [Last Taken Unknown] Nitroglycerin [Nitrostat] 0.4 mg SL PRN PRN #20 btl 01/01/17 [Last Taken Unknown ] Review of Systems - Review of Systems Constitutional: Present: recent illness - abdominal pain, being worked up by Dr. Aviles EYE: Present: no symptoms reported ENT: Absent: ear pain, sore throat Respiratory: Present: shortness of breath. Absent: cough, orthopnea, wheezing, stridor Cardiology: Present: chest pain, palpitations Gastrointestinal/Abdominal: Present: abdominal pain - epigastric. Absent: nausea, vomiting, diarrhea Genitourinary: Present: no symptoms reported Musculoskeletal: Present: no symptoms reported Skin: Present: no symptoms reported Neurological: Present: no symptoms reported Endocrine: Present: no symptoms reported - Patient's Past Medical History Patient History - Medical: Anxiety, Diabetes Type 2, Hypothyroidism Patient History - Cardiac/Respiratory: Hypertension, Hyperlipidemia Patient History - Cancer: No Hx of Cancer Patient History - Surgical Procedures: Cholecystectomy, , Tubal Ligation, Orthopedic Patient History - Other: None - Family History Mother Family History - Medical: Other Family History - Cardiac/Respiratory: Cardiac Arrest, Myocardial Infarction Family History - Cancer: Other Father Family History - Medical: Family History - Cardiac/Respiratory: Aneurysm, CVA/Stroke, Myocardial Infarction, Other - Social History Abuse History: No History of abuse Psych History: Hx of Anxiety, Hx of Depression, Current tx/ever been on anti- depressants or anti-anxiety meds - Immunizations Immunizations Up to Date: Yes Hx Pneumococcal Vaccination: No History of Influenza Vaccine: No Physical Exam - Physical Exam General Appearance: Present: wd/wn, alert, moderate distress, thin Head Exam: Present: normal inspection, no evidence of injury Eye Exam: Normal inspection: bilateral, PERRL: bilateral, EOMI: bilateral Ears, Nose, Throat: Present: normal ENT inspection Neck: Present: normal inspection, nontender Respiratory: Present: no respiratory distress, normal breath sounds, no accessory muscle use, chest nontender Cardiovascular/Chest: Present: regular rate, rhythm, no murmur Gastrointestinal/Abdominal: Present: normal bowel sounds, nontender, nondistended, soft Back Exam: Present: normal inspection, normal range of motion Extremity Exam: Present: normal inspection, non-tender, normal range of motion Neurological Exam: Present: alert, oriented, normal mood/affect, no motor/ sensory deficits Skin Exam: Present: normal color, warm/dry Lymphatic Exam: Present: no adenopathy ED Progress - Results and Orders Patient's Lab Results:: I have reviewed the patient's lab results. Results and Orders: Normal with negative troponin. Will repeat in 2 hours. 01:04. Second troponin is normal, will discharge the patient. Currently being worked up by Dr. Aviles for GI issues, she will follow up with him. - Vital Signs Patient's Vital Signs:: I have reviewed the patient's vital signs. - EKG EKG: NSR, other - possible R ventricular conduction delay, good R wave progression EKG read: Interp. by me - X-Ray X-Ray #1 X-Ray: chest Interpretation: Interp. by me - No cardiomegaly, no infiltrates, mild hyperinflation bilaterally; surgical hardware noted left shoulder Plan - Plan Plan: Follow up with Dr. Aviles as planned. Departure Clinical Impression: Heart palpitations, Anxiety, GERD with esophagitis - Departure Disposition: Home self-care Condition: Good Instructions: Food Choices for Gastroesophageal Reflux Disease, Adult, Easy-to- Read, Panic Attacks, [id number], Gastroesophageal Reflux Disease, Adult, Easy- to-Read Referrals: Chris Aviles MD [Primary Care Provider] - (as scheduled or in 3-4 days)
[2017-03-06 22:22] LABS: Hematocrit 41.4 % (37.0-47.0); Hemoglobin 13.8 gm/dL (12.5-16.0); Mean Cell Volume 84.1 fl (78-100); Mean Corpuscular Hgb Conc 33.3 g/dl (32-36); Mean Platelet Volume 9.5 fl (6.0-9.5); Neutrophil # 6.2 K/mm3 (1.3-6.0); Neutrophil % 60.3 % (42-75.0); Platelet Count 323 K/mm3 (150-450); Red Blood Count 4.92 M/mm3 (4.2-5.4); Red Cell Distribution Width 14.1 % (11.5-14.0); White Blood Count 10.3 K/mm3 (4.0-10.5)
[2017-03-06 22:36] LABS: ALT 24 U/L (19-67); AST 14 U/L (0-48); Albumin * 3.5 gm/dl (3.4-5.0); Alkaline Phosphatase * 113 U/L (50-170); Anion Gap 15.1 mmol/L (6.8-13.8); BUN/Creatinine Ratio 16.2 (9.0-21.6); Bilirubin, Total 0.2 mg/dL (0.0-1.1); Blood Urea Nitrogen 12 mg/dL (3-23); Ca. Corrected For Albumin 9.7 mg/dL (8.4-10.2); Calcium * 9.6 mg/dL (7.9-10.9); Carbon Dioxide 23.3 mmol/L (24-32.6); Chloride 104 mmol/L (97-106); Glucose * 96 mg/dL (70-110); Potassium 3.4 mmol/L (3.4-4.6); Sodium 139 mmol/L (132-142); Total Protein 7.6 gm/dL (6.2-8.2); Troponin I Less than 0.017 ng/ml (0.00-0.10)
[2017-03-06] MEDS ORDERED: MAG HYDROX/ALUMINUM HYD/SIMETH 30 ML UDC PO ONE (22:42)
[2017-03-06 22:48] LABS: Urine Bilirubin Negative (NEGATIVE); Urine Blood Negative /ul (NEGATIVE); Urine Ketone Negative (NEGATIVE); Urine Nitrite Negative (NEGATIVE); Urine Protein Negative (NEGATIVE); Urine Specific Gravity 1.015 SP.GR. (1.005-1.010); Urine Urobilinogen Normal (NORMAL)
[2017-03-06 23:00] LABS: Urine Appearance Clear; Urine Bacteria TRACE; Urine Color Yellow; Urine RBC None Seen /hpf (0-5); Urine WBC TRACE /hpf (0-5)
[2017-03-07 01:09] VITALS: BP 150/70
== END 2017-03-07 01:14 | disposition home or self-care (01) ==
LOC: ER 21:35
DX: R00.2 Palpitations (principal); F41.9 Anxiety disorder, unspecified; K21.0 Gastro-esophageal reflux disease with esophagitis; E11.9 Type 2 diabetes mellitus without complications; E03.9 Hypothyroidism, unspecified; I10 Essential (primary) hypertension; E78.5 Hyperlipidemia, unspecified

== ENCOUNTER 2017-03-24 18:16 | Emergency (ER) | payer BC ==
[2017-03-24 18:27] VITALS: BP 134/73
--- NOTE | 2017-03-24 18:48 | ERNOTE ---
Date of Service: 03/24/17 Time Seen by Provider: 03/24/17 18:30 Stated Complaint: BURNING IN THE BACK OF HEAD AND CHEST Presenting Symptoms:: cough Source: patient Exam Limitations: no limitations Immunizations: IMMUNIZATION HX Immunizations Up to Date Yes History of Influenza Vaccine No Hx Pneumococcal Vaccination No Allergies/Adverse Reactions: Allergies atorvastatin Allergy (Verified 03/24/17 18:27) azithromycin Allergy (Verified 03/24/17 18:27) erythromycin base Allergy (Verified 03/24/17 18:27) lisinopril Allergy (Verified 03/24/17 18:27) Home Medications: HOME MEDICATIONS Aspirin [Aspirin Chewable] 81 mg PO DAILY 08/03/16 [Last Taken Unknown] buPROPion HCL [Wellbutrin Xl] 150 mg PO DAILY 08/03/16 [Last Taken Unknown] Levothyroxine Sodium [Synthroid] 100 mcg PO DAILY 09/21/16 [Last Taken Unknown] ALPRAZolam [Xanax] 0.25 mg PO TID 10/10/16 [Last Taken Unknown] Nitroglycerin [Nitrostat] 0.4 mg SL PRN PRN #20 btl 01/01/17 [Last Taken Unknown ] Doxycycline Monohydrate 100 mg PO BID #20 tablet 03/24/17 [Last Taken Unknown] - History of Present Ilness Narrative: Pt. comes in with c/o warm feeling in her post occiput and in her chest for 5 hours. Pt. has been ill with recent upper resp infection with cough for 2 weeks. Pt. denies any chest pain. Pt. states that she had an ear infection for a week and took her last antibiotic three days ago. Pt. denies any SOB, fever, NVD, alleviating or aggravating factors. Review of Systems - Review of Systems Constitutional: Present: no symptoms reported. Absent: recent illness, fever, chills, weakness, fatigue, malaise EYE: Present: no symptoms reported ENT: Present: ear pain, nose congestion, nasal drainage, sore throat Respiratory: Present: cough. Absent: shortness of breath, wheezing Cardiology: Present: no symptoms reported. Absent: chest pain, palpitations, edema Gastrointestinal/Abdominal: Present: no symptoms reported. Absent: nausea, vomiting, diarrhea Genitourinary: Present: no symptoms reported Musculoskeletal: Present: no symptoms reported. Absent: back pain, joint pain Skin: Present: no symptoms reported Neurological: Present: no symptoms reported. Absent: headache, dizziness/light- headedness, numbness, tingling All Other Systems: All systems neg except as marked - Patient's Past Medical History Patient History - Medical: Anxiety, Diabetes Type 2, Hypothyroidism Patient History - Cardiac/Respiratory: Hypertension, Hyperlipidemia Patient History - Cancer: No Hx of Cancer Patient History - Surgical Procedures: Cholecystectomy, , Tubal Ligation, Orthopedic Patient History - Other: None - Family History Mother Family History - Medical: Other Family History - Cardiac/Respiratory: Cardiac Arrest, Myocardial Infarction Family History - Cancer: Other Father Family History - Medical: Family History - Cardiac/Respiratory: Aneurysm, CVA/Stroke, Myocardial Infarction, Other - Social History Living Situations: home Abuse History: No History of abuse Psych History: Hx of Anxiety, Hx of Depression, Current tx/ever been on anti- depressants or anti-anxiety meds Smoking Status: Former smoker Alcohol Use: none Drug Use: none - Immunizations Immunizations Up to Date: Yes Hx Pneumococcal Vaccination: No History of Influenza Vaccine: No Physical Exam - Physical Exam General Appearance: Present: wd/wn, alert, no apparent distress Head Exam: Present: normal inspection, no evidence of injury Eye Exam: Normal inspection: bilateral, PERRL: bilateral, EOMI: bilateral Ears, Nose, Throat: Present: nasal congestion, sinus pain/drainage - frontal and occipital Neck: Present: normal inspection, nontender. Absent: lymphadenopathy (R), lymphadenopathy (L), tender lateral, tender posterior midline Respiratory: Present: no respiratory distress, no accessory muscle use, chest tenderness - frontal intercostal, decreased breath sounds Cardiovascular/Chest: Present: regular rate, rhythm, no murmur, normal peripheral pulses Gastrointestinal/Abdominal: Present: normal bowel sounds, nontender, nondistended, soft, no organomegaly Back Exam: Present: normal inspection Extremity Exam: Present: normal inspection Neurological Exam: Present: alert, oriented, normal mood/affect, no motor/ sensory deficits Skin Exam: Present: normal color, warm/dry. Absent: pallor, skin rash ED Progress - Vital Signs Patient's Vital Signs:: I have reviewed the patient's vital signs. Vital Signs: Vital Signs 03/24/17 18:20 Temperature 36.1 C L Pulse Rate 84 Respiratory 16 Rate Blood Pressure 134/73 O2 Sat by Pulse 98 Oximetry - X-Ray X-Ray #1 X-Ray: chest Interpretation: Reviewed by me X-ray Comments: no consolidation - Progress/Reassessment Chief Complaint: Upper Respiratory Symptoms Departure Clinical Impression: Acute bronchitis Qualifiers: Bronchitis organism: unspecified organism Qualified Code(s): J20.9 - Acute bronchitis, unspecified - Departure Disposition: Home self-care Condition: Good Instructions: Acute Bronchitis, [id number] Additional Instructions: Please follow up with primary provider in 2-1 days Referrals: Chris Aviles MD [Primary Care Provider] - Prescriptions: Doxycycline Monohydrate 100 mg PO BID #20 tablet
== END 2017-03-24 19:10 | disposition home or self-care (01) ==
LOC: ER 18:16
DX: J20.9 Acute bronchitis, unspecified (principal); E03.9 Hypothyroidism, unspecified; F41.9 Anxiety disorder, unspecified; I10 Essential (primary) hypertension; F32.9 Major depressive disorder, single episode, unspecified

== ENCOUNTER 2017-04-01 19:12 | Emergency (ER) | payer BC ==
--- NOTE | 2017-04-01 20:25 | ERNOTE ---
Dizziness ER Record Presenting Symptoms: dizziness Time Seen by Provider: 04/01/17 20:02 Source: patient Exam Limitations: no limitations Immunizations: IMMUNIZATION HX Immunizations Up to Date Yes History of Influenza Vaccine No Hx Pneumococcal Vaccination No Allergies/Adverse Reactions: Allergies Allergy/AdvReac Type Severity Reaction Status Date / Time atorvastatin Allergy Verified 03/24/17 18:27 azithromycin Allergy Verified 03/24/17 18:27 erythromycin base Allergy Verified 03/24/17 18:27 lisinopril Allergy Verified 03/24/17 18:27 Home Medications: HOME MEDICATIONS Aspirin [Aspirin Chewable] 81 mg PO DAILY 08/03/16 [Last Taken Unknown] buPROPion HCL [Wellbutrin Xl] 150 mg PO DAILY 08/03/16 [Last Taken Unknown] Levothyroxine Sodium [Synthroid] 100 mcg PO DAILY 09/21/16 [Last Taken Unknown] ALPRAZolam [Xanax] 0.25 mg PO TID 10/10/16 [Last Taken Unknown] Nitroglycerin [Nitrostat] 0.4 mg SL PRN PRN #20 btl 01/01/17 [Last Taken Unknown ] LORazepam [Ativan] 0.5 mg PO BID 04/01/17 [Last Taken Unknown] Methylprednisolone [Medrol Dosepak] 4 mg PO DAILY #21 tab.ds.pk 04/01/17 [Last Taken Unknown] - History of Present Illness Narrative: Pt states she was making dinner when she began to have numbness along the back of her head and right jaw. She then had vague dizziness and headache posteriorly. This seemed to increase until she presented to the ED and she is now improving and nearly resolved Timing and Duration: gradual onset, better Noted on awakening:: No Severity: max: moderate Severity: currently: mild Associated Symptoms: Present: headache Sense of movement: Present: vague Decreased ability to stand/walk:: Present: off balance Modifying Factors - (Improves): Reports: nothing Modifying Factors - (Worsens): Reports: nothing Review of Systems - Review of Systems Constitutional: Absent: recent illness, fever EYE: Absent: blurred vision, double vision, vision changes ENT: Absent: sore throat Respiratory: Absent: shortness of breath Cardiology: Absent: chest pain Gastrointestinal/Abdominal: Present: nausea - due to dizziness. Absent: vomiting Genitourinary: Present: no symptoms reported Musculoskeletal: Present: no symptoms reported Skin: Present: no symptoms reported Neurological: Present: See HPI Endocrine: Absent: excessive sweating Hematologic/Lymphatic: Present: no symptoms reported Psych: Present: no symptoms reported - Patient's Past Medical History Patient History - Medical: Anxiety, Diabetes Type 2, Hypothyroidism Patient History - Cardiac/Respiratory: Hypertension, Hyperlipidemia Patient History - Cancer: No Hx of Cancer Patient History - Surgical Procedures: Cholecystectomy, , Tubal Ligation, Orthopedic Patient History - Other: None - Family History Mother Family History - Medical: Other Family History - Cardiac/Respiratory: Cardiac Arrest, Myocardial Infarction Family History - Cancer: Other Father Family History - Medical: Family History - Cardiac/Respiratory: Aneurysm, CVA/Stroke, Myocardial Infarction, Other - Social History Living Situations: spouse Abuse History: No History of abuse Psych History: Hx of Anxiety, Hx of Depression, Current tx/ever been on anti- depressants or anti-anxiety meds Smoking Status: Former smoker Have you smoked in the past 12 months: No Do you dip or chew tobacco: No Alcohol Use: none Drug Use: none - Immunizations Immunizations Up to Date: Yes Hx Pneumococcal Vaccination: No History of Influenza Vaccine: No Physical Exam - Physical Exam General Appearance: Present: wd/wn, alert, no apparent distress Head Exam: Present: normal inspection, no evidence of injury, no tenderness w palpation Eye Exam: Normal inspection: bilateral, PERRL: bilateral, EOMI: bilateral Ears, Nose, Throat: Present: normal ENT inspection Neck: Present: normal inspection, nontender Respiratory: Present: no respiratory distress, no accessory muscle use Back Exam: Present: normal inspection, normal range of motion Extremity Exam: Present: normal inspection, normal range of motion Neurological Exam: Present: alert, oriented, normal mood/affect, no motor/ sensory deficits - including sharp and fine touch on face and head, information coordinator II-XII nml as tested, normal cerebellar test. Absent: facial droop Skin Exam: Present: normal color, warm/dry Lymphatic Exam: Present: no adenopathy ED Progress - Results and Orders Patient's Lab Results:: I have reviewed the patient's lab results. Results and Orders: Laboratory Tests 04/01/17 04/01/17 04/01/17 20:30 20:30 20:30 WBC 12.0 H Hgb 14.1 Hct 42.8 Plt Count 362 ESR 23 H Sodium 138 Potassium 3.8 Chloride 104 Carbon Dioxide 27.3 BUN 15 Creatinine 0.80 Random Glucose 99 Calcium 9.5 C-Reactive Prot, Quant Less than 0.2 - Vital Signs Patient's Vital Signs:: I have reviewed the patient's vital signs. Vital Signs: Vital Signs 04/01/17 04/01/17 19:19 19:55 Temperature 36.5 C Pulse Rate 72 70 Respiratory 14 18 Rate Blood Pressure 134/60 135/59 O2 Sat by Pulse 97 94 Oximetry - CT/Ultrasound CT/Ultrasound Narrative: CT head without contrast: Impression: No acute intracranial process. Electronically signed by Suzanna Daniels D.O.. - Progress/Reassessment Chief Complaint: Dizziness Departure Clinical Impression: Occipital neuritis - Departure Disposition: Home Follow Up Needed Condition: Good Instructions: Occipital Neuralgia Additional Instructions: See Dr. Aviles as scheduled tomorrow. Referrals: Chris Aviles MD [Primary Care Provider] - Prescriptions: Methylprednisolone [Medrol Dosepak] 4 mg PO DAILY #21 tab.ds.pk
[2017-04-01 20:32] LABS: Hematocrit 42.8 % (37.0-47.0); Hemoglobin 14.1 gm/dL (12.5-16.0); Mean Cell Volume 85.1 fl (78-100); Mean Corpuscular Hgb Conc 32.9 g/dl (32-36); Mean Platelet Volume 9.1 fl (6.0-9.5); Neutrophil # 7.8 K/mm3 (1.3-6.0); Neutrophil % 65.2 % (42-75.0); Platelet Count 362 K/mm3 (150-450); Red Blood Count 5.03 M/mm3 (4.2-5.4); Red Cell Distribution Width 14.4 % (11.5-14.0)
[2017-04-01 20:43] LABS: Anion Gap 10.5 mmol/L (6.8-13.8); BUN/Creatinine Ratio 18.8 (9.0-21.6); Blood Urea Nitrogen 15 mg/dL (3-23); Calcium * 9.5 mg/dL (7.9-10.9); Carbon Dioxide 27.3 mmol/L (24-32.6); Chloride 104 mmol/L (97-106); Estimated Creat Clear 64.2; Glucose * 99 mg/dL (70-110); Potassium 3.8 mmol/L (3.4-4.6); Sodium 138 mmol/L (132-142)
[2017-04-01 22:43] VITALS: BP 145/65
== END 2017-04-01 22:40 | disposition home or self-care (01) ==
LOC: ER 19:12
DX: G58.8 Other specified mononeuropathies (principal); E11.9 Type 2 diabetes mellitus without complications; E03.9 Hypothyroidism, unspecified; I10 Essential (primary) hypertension; E78.5 Hyperlipidemia, unspecified; F41.9 Anxiety disorder, unspecified

== ENCOUNTER 2019-06-03 05:30 | Observation (INO) ==
--- NOTE | 2019-06-03 05:54 | ERNOTE ---
<Chris Brewer - Last Filed: 06/03/19 07:43> Chest Pain/Cardiac HPI Date of Service: 06/03/19 Chief Complaint: Chest Pain Time Seen by Provider: 06/03/19 05:34 Source: patient Exam Limitations: no limitations Immunizations: IMMUNIZATION HX Immunizations Up to Date Yes History of Influenza Vaccine No Hx Pneumococcal Vaccination No Allergies/Adverse Reactions: Allergies azithromycin Adverse Reaction (Severe, Verified 06/03/19 05:40) nausea/vomiting erythromycin base Adverse Reaction (Severe, Verified 06/03/19 05:40) upset stomach lisinopril Adverse Reaction (Severe, Verified 06/03/19 05:40) upset stomach atorvastatin Adverse Reaction (Intermediate, Verified 06/03/19 05:40) stomach upset duloxetine Adverse Reaction (Unknown, Verified 06/03/19 05:40) unknown Home Medications: HOME MEDICATIONS aspirin 81 mg tablet,delayed release 81 mg PO DAILY 03/01/19 [Last Taken 06/03/19] evolocumab 140 mg/mL subcutaneous pen injector 140 mg SUBCUT Q2W 03/01/19 [Last Taken Unknown] gemfibrozil 600 mg tablet 600 mg PO BID 03/01/19 [Last Taken Unknown] lorazepam 0.5 mg tablet 0.5 mg PO TID #90 tab 04/08/19 [Last Taken Unknown] ALPRAZolam [Xanax] 0.25 mg PO TID PRN 06/03/19 [Last Taken Unknown] Levothyroxine Sodium [Synthroid] 112 mcg PO DAILY 06/03/19 [Last Taken Unknown] buPROPion HCL [Wellbutrin Xl] 150 mg PO DAILY 06/03/19 [Last Taken Unknown] Pain Score #1 Pain Score: 7 Narrative: 56-year-old female woke up an hour and a half ago complaining of epigastric pain rating directly to the back says she cannot describe it but it is severe said she belched and made her feel little she has no gallbladder taken out years ago nauseous with no vomiting or diarrhea she had a bowel movement earlier this evening but is feeling very uncomfortable Date (Duration): 06/03/19 Time (Timing): 05:48 Timing: constant Severity/Quality: severe Location: epigastric Chest Pain Radiation: back Modifying Factors - Improves: Present: nothing Modifying Factors - Worsens: Present: nothing Aspirin Treatment Today: 81 mg x 1 Associated Symptoms: Present: nausea, abdominal pain Prior Chest Pain/Cardiac Workup: Reports: prior chest pain, other - Bilateral iliac stent Review of Systems - Review of Systems Constitutional: Present: no symptoms reported EYE: Present: no symptoms reported ENT: Present: no symptoms reported Respiratory: Present: no symptoms reported Cardiology: Present: no symptoms reported, chest pain Gastrointestinal/Abdominal: Present: nausea, abdominal pain Genitourinary: Present: no symptoms reported Musculoskeletal: Present: back pain Skin: Present: no symptoms reported Neurological: Present: no symptoms reported Endocrine: Present: no symptoms reported All Other Systems: All systems neg except as marked Medical History (Last Reviewed 06/03/19 @ 05:52 by Chris Brewer MD) Neck pain (Chronic) Shoulder pain (Chronic) Onset Date: Unknown left Panic attack (Chronic) Onset Date: ~04/02/17 Hypothyroidism (Chronic) Onset Date: Unknown Hyperlipidemia (Chronic) Onset Date: ~07/29/16 High risk medication use (Chronic) Onset Date: ~07/29/16 Graves disease (Chronic) Onset Date: ~1990 Fatigue (Chronic) Onset Date: Unknown Diabetes (Chronic) Onset Date: ~07/29/16 Depression (Chronic) Onset Date: ~01/15/17 Anxiety disorder (Chronic) Onset Date: ~01/15/17 Chest pain of unknown etiology Onset Date: Unknown Hearing loss Onset Date: Unknown Influenza vaccination declined Onset Date: ~06/09/18 Intermittent claudication Onset Date: Unknown Joint pain Onset Date: Unknown Leukocytosis Onset Date: Unknown Toxic shock syndrome Onset Date: ~1979 Surgical History: Surgical History (Last Reviewed 06/03/19 @ 05:52 by Chris Brewer MD) H/O colonoscopy Onset Date: ~07/05/09 polyp benign tubular adenoma H/O tubal ligation Onset Date: ~1990 History of arthroscopic surgery of shoulder Onset Date: ~03/25/10 left shoulder arthroscopy/labral repair/subacromial decompression/resection distal clavicle History of cholecystectomy Onset Date: ~1990 History of radiation therapy Onset Date: ~08/1990 to deplete thyroid History of shoulder surgery Onset Date: ~12/10/11 Previous section Onset Date: ~01/13/78 Status post subacromial decompression Onset Date: ~2009 Stented coronary artery Onset Date: ~10/2018 [facility]-Dr Naik - stents x2 Family History: Family History (Last Reviewed 06/03/19 @ 05:40 by Estrella Vides RN) Aunt Cancer breast Father Heart disease CVA (cerebral vascular accident) Hypertension Grandfather Myocardial infarction Grandfather Myocardial infarction Grandmother Dementia Grandmother Heart disease Mother Diabetes CHF (congestive heart failure) Hypertension Hyperlipemia Heart disease Osteoarthritis Sister Gout Sister Hypertension Hypothyroidism Osteoarthritis Sleep apnea Social History: (Last Updated 06/03/19 @ 05:41 by Estrella Vides RN) Social History: Marital status: current occupational status: disabled Service: No Tobacco: Smoking Status: Current every day smoker Smoking cigarettes per day: 20 Alcohol: alcohol intake: never Substance Use: substance use type: does not use Dietary Habits: caffeine: No Physical Exam - Physical Exam General Appearance: Present: wd/wn, alert, moderate distress Head Exam: Present: normal inspection Eye Exam: Normal inspection: bilateral Ears, Nose, Throat: Present: normal ENT inspection Neck: Present: normal inspection Respiratory: Present: no respiratory distress Cardiovascular/Chest: Present: regular rate, rhythm Gastrointestinal/Abdominal: Present: normal bowel sounds, tenderness, other - Extreme tenderness in the epigastric region Back Exam: Present: normal inspection Extremity Exam: Present: normal inspection Neurological Exam: Present: alert, oriented Skin Exam: Present: normal color Progress - Results and Orders Patient's Lab Results:: I have reviewed the patient's lab results. Results and Orders: Laboratory Tests 06/03/19 06:12 WBC 14.7 H RBC 5.46 H Hgb 15.8 Hct 47.4 H MCV 86.8 MCH 28.9 MCHC 33.3 Plt Count 406 Neutrophils % 80.5 H Lymphocytes % 12.4 L Laboratory Tests 06/03/19 06:12 Sodium 137 Plasma Sodium 138 Potassium 3.9 Chloride 100 Carbon Dioxide 22.5 L Anion Gap 18.4 H BUN 14 Creatinine 0.92 BUN/Creatinine Ratio 15.2 Random Glucose 149 H Calcium 10.1 Calcium Adj for Albumin 9.9 Total Bilirubin 0.2 AST 28 ALT 38 Alkaline Phosphatase 131 Troponin I Less than 0.017 Total Protein 8.4 H Albumin 3.9 Amylase 44 Lipase 138 - Vital Signs Patient's Vital Signs:: I have reviewed the patient's vital signs. Vital Signs: Vital Signs 06/03/19 05:31 Temperature 36.5 C Pulse Rate 66 Respiratory Rate 19 Blood Pressure 150/69 H O2 Sat by Pulse Oximetry 99 - EKG EKG #1 EKG: NSR EKG read: Interp. by me EKG Comments: Sinus rhythm with occasional PVC heart rate of 71 incomplete right bundle branch no acute changes no change from August 2008 - X-Ray X-Ray #1 X-Ray: chest Interpretation: Interp. by me X-ray Comments: Chest x-ray negative X-Ray #2 X-Ray: abdomen Interpretation: Interp. by me X-ray Comments: X-ray of the of the abdomen negative - Progress/Reassessment Chief Complaint: Chest Pain Progress Note-Subjective: 06/03/19 07:42 Cardiac enzymes within normal limits pain is definitely more abdominal epigastric in nature lab work right now essentially normal for liver function and pancreatic enzymes white count is elevated she had some mild reduction in pain with the Dilaudid we will give her another 0.5 since she still rates it it is an 8 - Transfer of Care Physician Sign Out: Chris Brewer Brief History: Patient awoke at 2 AM this morning with severe lower chest epigastric pain radiating straight through her back pain is a 8 out of 10 nauseous and vomited twice small amounts has had bowel movement waiting CAT scan work-up Receiving Physician: Jorge Horne Pending Results: CT/MRI results Expected Disposition: Discharge Departure Clinical Impression: Abdominal pain Qualifiers: Abdominal location: right lower quadrant Qualified Code(s): R10.31 - Right lower quadrant pain Acute appendicitis Qualifiers: Acute appendicitis type: other Qualified Code(s): K35.890 - Other acute appendicitis without perforation or gangrene - Departure Disposition: Still a patient Condition: Fair Referrals: Chris Aviles MD [Primary Care Provider] - <Jorge Horne - Last Filed: 06/03/19 10:03> Chest Pain/Cardiac HPI Immunizations: IMMUNIZATION HX Immunizations Up to Date Yes History of Influenza Vaccine No Hx Pneumococcal Vaccination No Medical History (Last Reviewed 06/03/19 @ 05:52 by Chris Brewer MD) Neck pain (Chronic) Shoulder pain (Chronic) Onset Date: Unknown left Panic attack (Chronic) Onset Date: ~04/02/17 Hypothyroidism (Chronic) Onset Date: Unknown Hyperlipidemia (Chronic) Onset Date: ~07/29/16 High risk medication use (Chronic) Onset Date: ~07/29/16 Graves disease (Chronic) Onset Date: ~1990 Fatigue (Chronic) Onset Date: Unknown Diabetes (Chronic) Onset Date: ~07/29/16 Depression (Chronic) Onset Date: ~01/15/17 Anxiety disorder (Chronic) Onset Date: ~01/15/17 Chest pain of unknown etiology Onset Date: Unknown Hearing loss Onset Date: Unknown Influenza vaccination declined Onset Date: ~06/09/18 Intermittent claudication Onset Date: Unknown Joint pain Onset Date: Unknown Leukocytosis Onset Date: Unknown Toxic shock syndrome Onset Date: ~1979 Surgical History: Surgical History (Last Reviewed 06/03/19 @ 05:52 by Chris Brewer MD) H/O colonoscopy Onset Date: ~07/05/09 polyp benign tubular adenoma H/O tubal ligation Onset Date: ~1990 History of arthroscopic surgery of shoulder Onset Date: ~03/25/10 left shoulder arthroscopy/labral repair/subacromial decompression/resection distal clavicle History of cholecystectomy Onset Date: ~1990 History of radiation therapy Onset Date: ~08/1990 to deplete thyroid History of shoulder surgery Onset Date: ~12/10/11 Previous section Onset Date: ~01/13/78 Status post subacromial decompression Onset Date: ~2009 Stented coronary artery Onset Date: ~10/2018 [facility]-Dr Naik - stents x2 Family History: Family History (Last Reviewed 06/03/19 @ 05:40 by Estrella Vides RN) Aunt Cancer breast Father Heart disease CVA (cerebral vascular accident) Hypertension Grandfather Myocardial infarction Grandfather Myocardial infarction Grandmother Dementia Grandmother Heart disease Mother Diabetes CHF (congestive heart failure) Hypertension Hyperlipemia Heart disease Osteoarthritis Sister Gout Sister Hypertension Hypothyroidism Osteoarthritis Sleep apnea Social History: (Last Updated 06/03/19 @ 05:41 by Estrella Vides RN) Social History: Marital status: current occupational status: disabled Service: No Tobacco: Smoking Status: Current every day smoker Smoking cigarettes per day: 20 Alcohol: alcohol intake: never Substance Use: substance use type: does not use Dietary Habits: caffeine: No Progress - Vital Signs Vital Signs: Vital Signs 06/03/19 05:31 06/03/19 05:39 06/03/19 05:54 Temperature 36.5 C Pulse Rate 66 72 70 Respiratory Rate 19 18 Blood Pressure 150/69 H 154/70 H O2 Sat by Pulse Oximetry 99 95 06/03/19 07:25 06/03/19 09:12 06/03/19 09:38 Temperature Pulse Rate 75 82 81 Respiratory Rate 16 16 16 Blood Pressure 130/62 133/64 135/74 O2 Sat by Pulse Oximetry 95 98 95 Plan - Plan Plan: I have consulted Dr. Maame Laguerre, for possible appendicitis. Dr. Laguerre came over and agreed that this is appendicitis and she is take Ms. Crawford to the operating room
[2019-06-03] MEDS ORDERED: ONDANSETRON HCL/PF 2 MG/ML VIAL IV ONE ×2 (05:55→07:17)
[2019-06-03] MEDS ORDERED: NORMAL SALINE 1,000 ML IV ONE (05:55)
[2019-06-03] MEDS ORDERED: MAG HYDROX/ALUMINUM HYD/SIMETH 30 ML UDC PO ONE (05:56)
[2019-06-03] MEDS ORDERED: LIDOCAINE HCL 20 ML UDC PO ONE (05:56)
[2019-06-03 06:18] LABS: Hematocrit 47.4 % (37.0-47.0); Hemoglobin 15.8 gm/dL (12.5-16.0); Mean Cell Volume 86.8 fl (78-100); Mean Corpuscular Hemoglobin 28.9 pg (27-31); Mean Corpuscular Hgb Conc 33.3 g/dl (32-36); Mean Platelet Volume 9.5 fl (8-12.5); Neutrophil # 11.8 K/mm3 (1.3-6.0); Neutrophil % 80.5 % (42-75.0); Platelet Count 406 K/mm3 (150-450); Red Blood Count 5.46 M/mm3 (4.2-5.4); Red Cell Distribution Width 14.6 % (11.5-14.0); White Blood Count 14.7 K/mm3 (4.0-10.5)
[2019-06-03] MEDS ORDERED: BELLADONNA ALKALOIDS/PHENOBARB ELIXIR PO ONE (06:25)
[2019-06-03 06:40] LABS: ALT 38 U/L (19-67); AST 28 U/L (0-48); Albumin * 3.9 gm/dl (3.4-5.0); Alkaline Phosphatase * 131 U/L (50-170); Amylase * 44 U/L (25-115); Anion Gap 18.4 mmol/L (6.8-13.8); BUN/Creatinine Ratio 15.2 (9.0-21.6); Bilirubin, Total 0.2 mg/dL (0.0-1.1); Blood Urea Nitrogen 14 mg/dL (3-23); Ca. Corrected For Albumin 9.9 mg/dL (8.4-10.2); Calcium * 10.1 mg/dL (7.9-10.9); Carbon Dioxide 22.5 mmol/L (24-32.6); Chloride 100 mmol/L (97-106); Glucose * 149 mg/dL (70-110); Lipase 138 U/L (73-393); Potassium 3.9 mmol/L (3.4-4.6); Sodium 137 mmol/L (132-142); Total Protein 8.4 gm/dL (6.2-8.2); Troponin I Less than 0.017 ng/mL (0.00-0.10)
[2019-06-03] MEDS ORDERED: DIATRIZOATE MEGLUMINE, SODIUM 30 ML BTL PO ONE (06:54)
[2019-06-03] MEDS ORDERED: HYDROmorphone HCL 1 MG/ML DISP.SYRIN IV ONE ×2 (07:02→07:42)
[2019-06-03 07:46] LABS: Urine Appearance Cloudy (CLEAR); Urine Bilirubin Negative (NEGATIVE); Urine Blood Negative /ul (NEGATIVE); Urine Color Yellow; Urine Ketone Negative (NEGATIVE); Urine Nitrite Positive (NEGATIVE); Urine Protein Negative (NEGATIVE); Urine RBC None Seen /hpf (0-5); Urine Urobilinogen Normal (NORMAL); Urine WBC 0-5 /hpf (0-5)
[2019-06-03 07:47] LABS: Urine Amorphous Sediment Many - 3+ (NONE-FEW); Urine Bacteria 2+
--- NOTE | 2019-06-03 10:37 | HP ---
Chief Complaint - Chief Complaint Date of Service: 06/03/19 Time of Service: 10:34 Chief Complaint: Acute appendicitis History of Present Illness: Linda is a pleasant 58-year-old female who developed abdominal pain last night. The pain is throughout her abdomen. She underwent a CT scan which shows early acute appendicitis. She has leukocytosis. She has a history of vascular stents. She has never had a heart attack. Medical History (Last Reviewed 06/03/19 @ 05:52 by Chris Brewer MD) Neck pain (Chronic) Shoulder pain (Chronic) Onset Date: Unknown left Panic attack (Chronic) Onset Date: ~04/02/17 Hypothyroidism (Chronic) Onset Date: Unknown Hyperlipidemia (Chronic) Onset Date: ~07/29/16 High risk medication use (Chronic) Onset Date: ~07/29/16 Graves disease (Chronic) Onset Date: ~1990 Fatigue (Chronic) Onset Date: Unknown Diabetes (Chronic) Onset Date: ~07/29/16 Depression (Chronic) Onset Date: ~01/15/17 Anxiety disorder (Chronic) Onset Date: ~01/15/17 Chest pain of unknown etiology Onset Date: Unknown Hearing loss Onset Date: Unknown Influenza vaccination declined Onset Date: ~06/09/18 Intermittent claudication Onset Date: Unknown Joint pain Onset Date: Unknown Leukocytosis Onset Date: Unknown Toxic shock syndrome Onset Date: ~1979 Surgical History: Surgical History (Last Reviewed 06/03/19 @ 05:52 by Chris Brewer MD) H/O colonoscopy Onset Date: ~07/05/09 polyp benign tubular adenoma H/O tubal ligation Onset Date: ~1990 History of arthroscopic surgery of shoulder Onset Date: ~03/25/10 left shoulder arthroscopy/labral repair/subacromial decompression/resection distal clavicle History of cholecystectomy Onset Date: ~1990 History of radiation therapy Onset Date: ~08/1990 to deplete thyroid History of shoulder surgery Onset Date: ~12/10/11 Previous section Onset Date: ~01/13/78 Status post subacromial decompression Onset Date: ~2009 Stented coronary artery Onset Date: ~10/2018 [facility]-Dr Naik - stents x2 Family History: Family History (Last Reviewed 06/03/19 @ 05:40 by Estrella Vides RN) Aunt Cancer breast Father Heart disease CVA (cerebral vascular accident) Hypertension Grandfather Myocardial infarction Grandfather Myocardial infarction Grandmother Dementia Grandmother Heart disease Mother Diabetes CHF (congestive heart failure) Hypertension Hyperlipemia Heart disease Osteoarthritis Sister Gout Sister Hypertension Hypothyroidism Osteoarthritis Sleep apnea Social History: (Last Updated 06/03/19 @ 05:41 by Estrella Vides RN) Social History: Marital status: current occupational status: disabled Service: No Tobacco: Smoking Status: Current every day smoker Smoking cigarettes per day: 20 Alcohol: alcohol intake: never Substance Use: substance use type: does not use Dietary Habits: caffeine: No Review Of Systems (GEN) - Review of Systems Generalized/Overall Review: Present: Malaise EENTM: Present: No Symptoms Reported Respiratory: Present: No Symptoms Reported Cardiac: Present: No Symptoms Reported Abdominal: Present: Abdominal Pain Genitourinary: Present: No Symptoms Reported Musculoskeletal: Present: No Symptoms Reported Neurological: Present: No Symptoms Reported Skin: Present: No Symptoms Reported Endocrine: Present: No Symptoms Reported Immunizations: IMMUNIZATION HX Immunizations Up to Date Yes History of Influenza Vaccine No Hx Pneumococcal Vaccination No Allergies/Adverse Reactions: Allergies Allergy/AdvReac Type Severity Reaction Status Date / Time azithromycin AdvReac Severe nausea/vomi Verified 06/03/19 05:40 ting erythromycin base AdvReac Severe upset Verified 06/03/19 05:40 stomach lisinopril AdvReac Severe upset Verified 06/03/19 05:40 stomach atorvastatin AdvReac Intermediate stomach Verified 06/03/19 05:40 upset duloxetine AdvReac Unknown unknown Verified 06/03/19 05:40 Home Medications: HOME MEDICATIONS aspirin 81 mg tablet,delayed release 81 mg PO DAILY 03/01/19 [Last Taken 06/03/19] evolocumab 140 mg/mL subcutaneous pen injector 140 mg SUBCUT Q2W 03/01/19 [Last Taken Unknown] gemfibrozil 600 mg tablet 600 mg PO BID 03/01/19 [Last Taken Unknown] lorazepam 0.5 mg tablet 0.5 mg PO TID #90 tab 04/08/19 [Last Taken Unknown] ALPRAZolam [Xanax] 0.25 mg PO TID PRN 06/03/19 [Last Taken Unknown] Levothyroxine Sodium [Synthroid] 112 mcg PO DAILY 06/03/19 [Last Taken Unknown] buPROPion HCL [Wellbutrin Xl] 150 mg PO DAILY 06/03/19 [Last Taken Unknown] Exam - Exam Vital Signs: Vital Signs - Last Taken Temp 36.5 C 06/03/19 05:31 Pulse 81 06/03/19 09:38 Resp 16 06/03/19 09:38 BP 135/74 06/03/19 09:38 Pulse Ox 95 06/03/19 09:38 Constitutional: Present: Alert, Oriented x3, Cooperative ENT Exam: Present: hearing grossly normal Eye Exam: bilateral eye: normal inspection Neck: Present: supple Breasts: Present: Exam deferred Respiratory: Present: lungs clear, normal breath sounds, no respiratory distress Cardiovascular/Chest: Present: regular rate, rhythm Abdomen: Present: soft, no rebound tenderness, tender. Absent: nontender, gua rding, rigidity, rebound tenderness /Rectal: Present: Exam deferred Extremity: Present: normal range of motion Skin Exam: Present: normal color, warm/dry Neurologic: Present: sanitation associate II-XII nml as tested Appearance: Present: appropriate appearance Eye contact: Present: cooperative, good eye contact Thoughts: Present: normal thought pattern Diagnostic Studies: Abnormal Lab Results 06/03/19 06/03/19 06/03/19 Range/Units 06:12 06:12 07:25 WBC 14.7 H (4.0-10.5) K/mm3 RBC 5.46 H (4.2-5.4) M/mm3 Hct 47.4 H (37.0-47.0) % RDW 14.6 H (11.5-14.0) % Immature Gran # (Auto) 0.06 H (0.000-0.0310) K/mm3 Neutrophils % 80.5 H (42-75.0) % Lymphocytes % 12.4 L (20-51) % Neutrophils # 11.8 H (1.3-6.0) K/mm3 Carbon Dioxide 22.5 L (24-32.6) mmol/L Anion Gap 18.4 H (6.8-13.8) mmol/L Random Glucose 149 H (70-110) mg/dL Total Protein 8.4 H (6.2-8.2) gm/dL Urine pH 8.0 H (5.0-7.0) pH Urine Nitrate Positive H (NEGATIVE) Amorphous Sediment Many - 3+ H (NONE-FEW) Urine Bacteria 2+ H (NONE) Laboratory Results WBC 14.7 K/mm3 (4.0-10.5) H 06/03/19 06:12 RBC 5.46 M/mm3 (4.2-5.4) H 06/03/19 06:12 Hgb 15.8 gm/dL (12.5-16.0) 06/03/19 06:12 Hct 47.4 % (37.0-47.0) H 06/03/19 06:12 MCV 86.8 fl (78-100) 06/03/19 06:12 MCH 28.9 pg (27-31) 06/03/19 06:12 MCHC 33.3 g/dl (32-36) 06/03/19 06:12 RDW 14.6 % (11.5-14.0) H 06/03/19 06:12 Plt Count 406 K/mm3 (150-450) 06/03/19 06:12 MPV 9.5 fl (8-12.5) 06/03/19 06:12 Immature Gran % (Auto) 0.40 % (0.001-0.429) 06/03/19 06:12 Immature Gran # (Auto) 0.06 K/mm3 (0.000-0.0310) H 06/03/19 06:12 Neutrophils % 80.5 % (42-75.0) H 06/03/19 06:12 Lymphocytes % 12.4 % (20-51) L 06/03/19 06:12 Monocytes % 5.6 % (0.0-9) 06/03/19 06:12 Eosinophils % 0.7 % (0.0-3.0) 06/03/19 06:12 Basophils % 0.4 % (0.0-1.0) 06/03/19 06:12 Nucleated RBC % 0.0 k/mm3 (0-1) 06/03/19 06:12 Neutrophils # 11.8 K/mm3 (1.3-6.0) H 06/03/19 06:12 Lymphocytes # 1.82 k/mm3 (1.5-3.5) 06/03/19 06:12 Monocytes # 0.8 k/mm3 (0.0-1.0) 06/03/19 06:12 Eosinophils # 0.1 k/mm3 (0.0-0.7) 06/03/19 06:12 Absolute Basophils 0.1 k/mm3 (0.0-0.1) 06/03/19 06:12 Sodium 137 mmol/L (132-142) 06/03/19 06:12 Plasma Sodium 138 mmol/L (130-142) 06/03/19 06:12 Potassium 3.9 mmol/L (3.4-4.6) 06/03/19 06:12 Chloride 100 mmol/L (97-106) 06/03/19 06:12 Carbon Dioxide 22.5 mmol/L (24-32.6) L 06/03/19 06:12 Anion Gap 18.4 mmol/L (6.8-13.8) H 06/03/19 06:12 BUN 14 mg/dL (3-23) 06/03/19 06:12 Creatinine 0.92 mg/dL (0.4-1.4) 06/03/19 06:12 Est GFR (Non-Af Amer) 66 mL/min (60-130) D 06/03/19 06:12 BUN/Creatinine Ratio 15.2 (9.0-21.6) 06/03/19 06:12 Random Glucose 149 mg/dL (70-110) H 06/03/19 06:12 Calcium 10.1 mg/dL (7.9-10.9) 06/03/19 06:12 Calcium Adj for Albumin 9.9 mg/dL (8.4-10.2) 06/03/19 06:12 Total Bilirubin 0.2 mg/dL (0.0-1.1) 06/03/19 06:12 AST 28 U/L (0-48) 06/03/19 06:12 ALT 38 U/L (19-67) 06/03/19 06:12 Alkaline Phosphatase 131 U/L (50-170) 06/03/19 06:12 Troponin I Less than 0.017 ng/mL (0.00-0.10) 06/03/19 06:12 Total Protein 8.4 gm/dL (6.2-8.2) H 06/03/19 06:12 Albumin 3.9 gm/dl (3.4-5.0) 06/03/19 06:12 Amylase 44 U/L (25-115) 06/03/19 06:12 Lipase 138 U/L (73-393) 06/03/19 06:12 Urine Color Yellow 06/03/19 07:25 Urine Appearance Cloudy (CLEAR) 06/03/19 07:25 Urine pH 8.0 pH (5.0-7.0) H 06/03/19 07:25 Ur Specific [place] 1.020 SP.GR. (1.005-1.010) 06/03/19 07:25 Urine Protein Negative mg/dL (NEGATIVE) 06/03/19 07:25 Urine Glucose (UA) Negative mg/dL (NEGATIVE) 06/03/19 07:25 Urine Ketones Negative mg/dL (NEGATIVE) 06/03/19 07:25 Urine Blood Negative /ul (NEGATIVE) 06/03/19 07:25 Urine Nitrate Positive (NEGATIVE) H 06/03/19 07:25 Urine Bilirubin Negative mg/dl (NEGATIVE) 06/03/19 07:25 Urine Urobilinogen Normal EU/dl (NORMAL) 06/03/19 07:25 Ur Leukocyte Esterase Negative /ul (NEGATIVE) 06/03/19 07:25 Urine RBC None seen /hpf (0-5) 06/03/19 07:25 Urine WBC 0-5 /hpf (0-5) 06/03/19 07:25 Ur Epithelial Cells 0-5 /hpf (0-5) 06/03/19 07:25 Amorphous Sediment Many - 3+ (NONE-FEW) H 06/03/19 07:25 Urine Bacteria 2+ (NONE) H 06/03/19 07:25 Urine Culture Comments Culture to follow 06/03/19 07:25 Assessment/Plan - Narrative Narrative: We will plan to give the patient a dose of antibiotics. Risks and benefits of the procedure were discussed with the patient and we will plan to do a laparoscopic possible open appendectomy. There is not room in the OR at this time so she will be admitted to the floor for observation while we wait for the OR to open up. Thank you for allowing me to participate in the care of your patient. - Assessment/Plan (1) Acute appendicitis Problem: Acute Qualifiers: Acute appendicitis type: other Qualified Code(s): K35.890 - Other acute appendicitis without perforation or gangrene
[2019-06-03] MEDS: HYDROmorphone HCL 1 MG/ML DISP.SYRIN IV PRN ×3 (13:26→21:44)
[2019-06-03] MEDS ORDERED: CEFOXITIN SODIUM 1 GM in DEXTROSE 5 % IN WATER 100 ML IV ONE ×2 (14:56)
[2019-06-03] MEDS ORDERED: BUPIVACAINE HCL 50 ML VIAL IJ ONE ×2 (15:53→17:10)
--- NOTE | 2019-06-03 16:15 | ANES ---
Anesthesia Pre Procedure Eval Vitals/Labs: Last Vital Signs Temp 36.4 C 06/03/19 13:27 Pulse 76 06/03/19 13:27 Resp 18 06/03/19 13:27 BP 168/78 H 06/03/19 13:27 Pulse Ox 94 06/03/19 13:27 HOME MEDICATIONS aspirin 81 mg tablet,delayed release 81 mg PO DAILY 03/01/19 [Last Taken 06/03/19] evolocumab 140 mg/mL subcutaneous pen injector 140 mg SUBCUT Q2W 03/01/19 [Last Taken Unknown] gemfibrozil 600 mg tablet 600 mg PO BID 03/01/19 [Last Taken Unknown] lorazepam 0.5 mg tablet 0.5 mg PO TID #90 tab 04/08/19 [Last Taken Unknown] ALPRAZolam [Xanax] 0.25 mg PO TID PRN 06/03/19 [Last Taken Unknown] Levothyroxine Sodium [Synthroid] 112 mcg PO DAILY 06/03/19 [Last Taken Unknown] buPROPion HCL [Wellbutrin Xl] 150 mg PO DAILY 06/03/19 [Last Taken Unknown] hydrocodone 5 mg-acetaminophen 325 mg tablet 1 tab PO Q6H #20 tab 06/03/19 [Last Taken Unknown] Allergies/Adverse Reactions: Allergies Allergy/AdvReac Type Severity Reaction Status Date / Time azithromycin AdvReac Severe nausea/vomi Verified 06/03/19 11:07 ting erythromycin base AdvReac Severe upset Verified 06/03/19 11:07 stomach lisinopril AdvReac Severe upset Verified 06/03/19 11:07 stomach atorvastatin AdvReac Intermediate stomach Verified 06/03/19 11:07 upset duloxetine AdvReac Unknown unknown Verified 06/03/19 11:07 - Planned Procedure Planned Procedure: Lap Appy Medication List Reviewed:: Yes Allergies Verified: Yes Medical History (Last Updated 06/03/19 @ 16:04 by Dung Torres CRNA) Neck pain (Chronic) Shoulder pain (Chronic) Onset Date: Unknown left Panic attack (Chronic) Onset Date: ~04/02/17 Hypothyroidism (Chronic) Onset Date: Unknown Hyperlipidemia (Chronic) Onset Date: ~07/29/16 High risk medication use (Chronic) Onset Date: ~07/29/16 Graves disease (Chronic) Onset Date: ~1990 Fatigue (Chronic) Onset Date: Unknown Diabetes (Chronic) Onset Date: ~07/29/16 Depression (Chronic) Onset Date: ~01/15/17 Anxiety disorder (Chronic) Onset Date: ~01/15/17 Coronary artery disease Chest pain of unknown etiology Onset Date: Unknown Hearing loss Onset Date: Unknown Influenza vaccination declined Onset Date: ~06/09/18 Intermittent claudication Onset Date: Unknown Joint pain Onset Date: Unknown Leukocytosis Onset Date: Unknown Toxic shock syndrome Onset Date: ~1979 Surgical History (Last Reviewed 06/03/19 @ 16:05 by Dung Torres CRNA) H/O colonoscopy Onset Date: ~07/05/09 polyp benign tubular adenoma H/O tubal ligation Onset Date: ~1990 History of arthroscopic surgery of shoulder Onset Date: ~03/25/10 left shoulder arthroscopy/labral repair/subacromial decompression/resection distal clavicle History of cholecystectomy Onset Date: ~1990 History of radiation therapy Onset Date: ~08/1990 to deplete thyroid History of shoulder surgery Onset Date: ~12/10/11 Previous section Onset Date: ~01/13/78 Status post subacromial decompression Onset Date: ~2009 Stented coronary artery Onset Date: ~10/2018 [facility]-Dr Naik - stents x2 Family History (Last Reviewed 06/03/19 @ 16:05 by Dung Torres CRNA) Aunt Cancer breast Father Heart disease CVA (cerebral vascular accident) Hypertension Grandfather Myocardial infarction Grandfather Myocardial infarction Grandmother Dementia Grandmother Heart disease Mother Diabetes CHF (congestive heart failure) Hypertension Hyperlipemia Heart disease Osteoarthritis Sister Gout Sister Hypertension Hypothyroidism Osteoarthritis Sleep apnea - Family Anesthesia History Family History:: no untoward family reactions to anesthesia, no familial bleeding tendencies, no family history of clotting disorders, no family history of premature - Airway/Neck/Teeth Within Normal Limits:: Yes Teeth Condition: none Mallampatti Score: 2 Thyromental (T-M) distance: > 6 cm Mandibulo Hyoid distance: > 3 cm - Respiratory Respiratory Physical: lungs clear Smoking Status: Current every day smoker Discussed smoking cessation including day of surgery: Yes Sleep Apnea currently treated: No Sleep Apnea by current assessment: No Discussed Risks/Treatment of COOPER: No - Cardiovascular Tolerate Activity: Fair Heart Sounds: S1 & S2, Regular - Gastrointestinal NPO since: 0000 - Anesthesia Assessment and Plan ASA Class: PS, III Anesthesia Type Plan: General ET
[2019-06-03] MEDS ORDERED: ONDANSETRON HCL/PF 2 MG/ML VIAL ONE (16:27)
[2019-06-03] MEDS ORDERED: LIDOCAINE HCL 20 ML VIAL ONE (16:27)
[2019-06-03] MEDS ORDERED: PROPOFOL VIAL IV ONE (16:27)
[2019-06-03] MEDS ORDERED: fentaNYL CITRATE/PF 50 MCG/ML AMPUL ONE (16:27)
[2019-06-03] MEDS ORDERED: GLYCOPYRROLATE 0.2 MG/ML VIAL ONE (16:27)
[2019-06-03] MEDS ORDERED: NEOSTIGMINE METHYLSULFATE 1 MG/ML VIAL ONE (16:27)
[2019-06-03] MEDS ORDERED: ROCURONIUM BROMIDE 10 MG/ML VIAL ONE (16:28)
[2019-06-03] MEDS ORDERED: SUCCINYLCHOLINE CHLORIDE 20 MG/ML VIAL ONE (16:28)
[2019-06-03] MEDS ORDERED: RINGER'S SOLUTION,LACTATED 1,000 ML IV PRN (17:10)
--- NOTE | 2019-06-03 17:24 | OR ---
Operative Report - Dictated Report Narrative: Date of Service: 06/03/18 Procedure: laparoscopic appendectomy Pre-procedure diagnosis: acute appendicitis Post-procedure diagnosis: same Surgeon: Dr. Maame Laguerre Anesthesia: general Indication for procedure: Linda is a pleasant 58-year-old female that was admitted through the emergency room for acute appendicitis. Description of procedure: After appropriate informed consent was obtained patient was taken to the operating room, placed in the supine position. General anesthesia was achieved. The RN placed a Dow catheter. The patient was prepped and draped in the usual sterile fashion. A 5 mm periumbilical incision was made, hemostat was used to dissect down to the fascia. A Veress needle was inserted, a saline drop test was performed which was satisfactory. The abdomen was insufflated to 15 mmHg. A 5mm blunt trocar was placed at the umbilicus. T he camera was inserted, there was no evidence of a trocar injury. A 12 mm trocar was placed in the left lower quadrant of the abdomen. A 5 mm trocar was placed in the suprapubic region. The patient was placed in a head down, rotated left position, to facilitate exposure. The appendix was identified, it appeared consistent with acute appendicitis. A window was made in the mesoappendix. The 45 mm echelon stapler with the white load was placed across the base of the appendix. There was good hemostasis. The echelon 45 mm stapler with a white load was then placed across the mesoappendix. There was good hemostasis. The appendix was removed through an Endo Catch bag. The abdomen was inspected and the staple lines were intact, with good hemostasis. The remainder of the abdomen was inspected and was satisfactory. The 12 mm trocar site was closed with an 0 Vicryl suture using a PMI device. The abdomen was desufflated. Local anesthetic was injected. The incisions were closed with inverted interrupted 4- 0 Monocryl sutures. Mastisol and Steri-Strips were applied. The patient tolerated the procedure well and was transported to the PACU in satisfactory condition. Estimated blood loss: minimal Complications: none Specimens to pathology: appendix Disposition: The patient will be admitted to the floor for observation.
[2019-06-03] MEDS ORDERED: ONDANSETRON HCL/PF 2 MG/ML VIAL IV PRN (17:37)
[2019-06-03] MEDS ORDERED: HYDROcodone/ACETAMINOPHEN 1 EACH TABLET PO PRN (17:37)
[2019-06-03] MEDS ORDERED: IBUPROFEN 800 MG TABLET PO PRN (17:37)
--- NOTE | 2019-06-03 17:39 | ANES ---
Post Anesthesia Assessment - Vital Signs Vitals: Last Vital Signs Temp 36.4 C 06/03/19 13:27 Pulse 76 06/03/19 13:27 Resp 18 06/03/19 13:27 BP 168/78 H 06/03/19 13:27 Pulse Ox 94 06/03/19 13:27 Airway Patency: Normal - Mental Status Level Of Consciousness: Awake, Alert, Appropriate - Pain Level Pain Score: 3 - N/V Assessment Nausea/Vomiting Presence: None Dehydration:: No
--- NOTE | 2019-06-03 18:01 | ANES ---
Post Anesthesia Discharge - Transfer of Care Transfer of Care handoff given to nurse: Yes - Discharge from PACU Discharge from PACU when meets criteria: Yes - comfortable on discharge
[2019-06-03] MEDS: POTASSIUM CHLORIDE 20 MEQ in DEXTROSE 5%-0.5 NORMAL SALINE 990 ML IV SCH (18:09)
[2019-06-04] MEDS: HYDROmorphone HCL 1 MG/ML DISP.SYRIN IV PRN (01:53)
[2019-06-04] MEDS: POTASSIUM CHLORIDE 20 MEQ in DEXTROSE 5%-0.5 NORMAL SALINE 990 ML IV SCH (04:14)
--- NOTE | 2019-06-04 09:39 | DS ---
(1) Acute appendicitis Problem: Acute Qualifiers: Acute appendicitis type: other Qualified Code(s): K35.890 - Other acute appendicitis without perforation or gangrene Date of Discharge:: 06/04/19 Hospital Course: Jade was admitted through the emergency room for acute appendicitis. She went to the OR for laparoscopic appendectomy which was uneventful. She was admitted to the floor for observation. She is doing well and tolerating a diet. She is ready for discharge. Procedures Performed: see notes below List Procedures: Laparoscopic appendectomy Results and Findings: Pending Mircobiology Results 06/03/19 Unknown Urine,Catheterized Urine Culture - Preliminary Gram Negative Bacilli Lab Pending Results 06/03/19 06:12: WBC 14.7 H, RBC 5.46 H, Hgb 15.8, Hct 47.4 H, MCV 86.8, MCH 28.9, MCHC 33.3, RDW 14.6 H, Plt Count 406, MPV 9.5, Immature Gran % (Auto) 0.4 0, Immature Gran # (Auto) 0.06 H, Neutrophils % 80.5 H, Lymphocytes % 12.4 L, Monocytes % 5.6, Eosinophils % 0.7, Basophils % 0.4, Nucleated RBC % 0.0, Neutrophils # 11.8 H, Lymphocytes # 1.82, Monocytes # 0.8, Eosinophils # 0.1, Absolute Basophils 0.1 06/03/19 06:12: Sodium 137, Plasma Sodium 138, Potassium 3.9, Chloride 100, Carbon Dioxide 22.5 L, Anion Gap 18.4 H, BUN 14, Creatinine 0.92, Est GFR (Non- Af Amer) 66 D, BUN/Creatinine Ratio 15.2, Random Glucose 149 H, Calcium 10.1, Calcium Adj for Albumin 9.9, Total Bilirubin 0.2, AST 28, ALT 38, Alkaline Phosphatase 131, Troponin I Less than 0.017, Total Protein 8.4 H, Albumin 3.9, Amylase 44, Lipase 138 06/03/19 07:25: Urine Color Yellow, Urine Appearance Cloudy, Urine pH 8.0 H, Ur Specific Cameron 1.020, Urine Protein Negative, Urine Glucose (UA) Negative, Urine Ketones Negative, Urine Blood Negative, Urine Nitrate Positive H, Urine Bilirubin Negative, Urine Urobilinogen Normal, Ur Leukocyte Esterase Negative, Urine RBC None seen, Urine WBC 0-5, Ur Epithelial Cells 0-5, Amorphous Sediment Many - 3+ H, Urine Bacteria 2+ H, Urine Culture Comments Culture to follow 06/03/19 17:40: Pathology Specimen Sent to path Discharge Location: Home Disposition: Home self-care Condition: Fair Discharge Activity: Activity as tolerated Discharge Diet: General/regular food Referrals: Chris Aviles MD [Primary Care Provider] - Additional Patient Instructions (free text): Follow-up with Dr. Laguerre in 2 weeks Complete Home Medications List: Complete Home Medication List: aspirin 81 mg tablet,delayed release 81 mg PO DAILY 03/01/19 evolocumab 140 mg/mL subcutaneous pen injector 140 mg SUBCUT Q2W 03/01/19 gemfibrozil 600 mg tablet 600 mg PO BID 03/01/19 lorazepam 0.5 mg tablet 0.5 mg PO TID #90 tab 04/08/19 ALPRAZolam [Xanax] 0.25 mg PO TID PRN 06/03/19 Levothyroxine Sodium [Synthroid] 112 mcg PO DAILY 06/03/19 buPROPion HCL [Wellbutrin Xl] 150 mg PO DAILY 06/03/19 hydrocodone 5 mg-acetaminophen 325 mg tablet 1 tab PO Q6H #20 tab 06/03/19 Ibuprofen [Motrin] 800 mg PO Q6H PRN tablet 06/04/19
[2019-06-04 10:26] VITALS: BP 127/61
== END 2019-06-04 10:00 | disposition home or self-care (01) ==
LOC: ER 05:30 → AMB 10:21 → MS 10:21 → AMB 10:45
PROVIDERS: ADMIT Surgery; ATTEND Surgery
DX: K35.890 Other acute appendicitis without perforation or gangrene
CPT/HCPCS: 36415; 71010; 71045; 74019; 74020; 74177; 80053; 81001; 82150; 83690; 84484; 85025; 87077; 87086; 87186; 88304; 93005; 99285; G0378; J2405; Q9963; Q9967

== ENCOUNTER 2019-11-06 18:51 | Inpatient (IN) ==
[2019-11-06] MEDS ORDERED: ALBUTEROL SULFATE 60 PUFF INHALER IH ONE (19:48)
--- NOTE | 2019-11-06 19:49 | ERNOTE ---
Medical Problem HPI - Narrative Date of Service: 11/06/19 - General Chief Complaint: Fever Time Seen by Provider: 11/06/19 19:23 Source: patient Exam Limitations: no limitations - Immun/Allergies/Home Medications Immunizations: IMMUNIZATION HX Immunizations Up to Date Yes History of Influenza Vaccine No Hx Pneumococcal Vaccination No Allergies/Adverse Reactions: Allergies azithromycin Adverse Reaction (Severe, Verified 11/06/19 18:59) nausea/vomiting erythromycin base Adverse Reaction (Severe, Verified 11/06/19 18:59) upset stomach lisinopril Adverse Reaction (Severe, Verified 11/06/19 18:59) upset stomach atorvastatin Adverse Reaction (Intermediate, Verified 11/06/19 18:59) stomach upset duloxetine Adverse Reaction (Unknown, Verified 11/06/19 18:59) unknown Home Medications: HOME MEDICATIONS aspirin 81 mg tablet,delayed release 81 mg PO DAILY 03/01/19 [Last Taken 06/03/19] evolocumab 140 mg/mL subcutaneous pen injector 140 mg SUBCUT Q2W 03/01/19 [Last Taken Unknown] gemfibrozil 600 mg tablet 600 mg PO BID 03/01/19 [Last Taken Unknown] lorazepam 1 mg tablet 1 mg PO TID #90 tab 09/19/19 [Last Taken Unknown] levothyroxine 112 mcg tablet 112 mcg PO DAILY #90 tab 09/20/19 [Last Taken Unknown] - Pain Score Pain Score #1 Pain Score: 3 - History of Present History Narrative: The patient is a 59 year old female who presents for fever and cough which has been present since yesterday. There are associated symptoms of upper back pain and fatigue. The patient reports upper back pain, 3/10. There are no alleviating factors. There are no aggravating factors. Previous treatments have included: Tylenol and Mucinex with slight improvement. The past medical history includes: anxiety, depression, DM, HLD and hypothyroid. The social history is positive for current tobacco use. The patient has had no known ill contacts. Patient states that cough is non productive. Review of Systems - Review of Systems Constitutional: Present: fever, fatigue. Absent: chills EYE: Present: no symptoms reported ENT: Present: no symptoms reported. Absent: ear pain, nasal drainage, sore throat Respiratory: Present: cough. Absent: shortness of breath Cardiology: Present: no symptoms reported. Absent: chest pain Gastrointestinal/Abdominal: Present: eating less, drinking less. Absent: nausea, vomiting, diarrhea Genitourinary: Present: decreased urinary output. Absent: dysuria Musculoskeletal: Present: back pain Skin: Present: no symptoms reported. Absent: rash Neurological: Present: no symptoms reported All Other Systems: All systems neg except as marked Medical History (Last Reviewed 11/06/19 @ 20:00 by SIERRA Handy) Neck pain (Chronic) Shoulder pain (Chronic) Onset Date: Unknown left Panic attack (Chronic) Onset Date: ~04/02/17 Hypothyroidism (Chronic) Onset Date: Unknown Hyperlipidemia (Chronic) Onset Date: ~07/29/16 High risk medication use (Chronic) Onset Date: ~07/29/16 Graves disease (Chronic) Onset Date: ~1990 Fatigue (Chronic) Onset Date: Unknown Diabetes (Chronic) Onset Date: ~07/29/16 Depression (Chronic) Onset Date: ~01/15/17 Anxiety disorder (Chronic) Onset Date: ~01/15/17 Chest pain of unknown etiology Onset Date: Unknown Hearing loss Onset Date: Unknown Influenza vaccination declined Onset Date: ~06/09/18 Intermittent claudication Onset Date: Unknown Joint pain Onset Date: Unknown Leukocytosis Onset Date: Unknown Bilateral femoral artery stenosis Toxic shock syndrome Onset Date: ~1979 Surgical History: Surgical History (Last Reviewed 11/06/19 @ 20:00 by SIERRA Handy) History of laparoscopic appendectomy Onset Date: 06/03/19 [place] H/O colonoscopy Onset Date: 07/05/09 07/05/09 [place]-tubular adenoma H/O tubal ligation Onset Date: ~1990 History of arthroscopic surgery of shoulder Onset Date: 03/25/10 [facility] shoulder arthroscopy/labral repair/subacromial decomp ression/resection distal clavicle History of cholecystectomy Onset Date: ~1990 History of radiation therapy Onset Date: ~08/1990 to deplete thyroid History of shoulder surgery Onset Date: 12/10/11 [facility]-left fusion with OC bone graft Previous section Onset Date: 01/13/78 S/P arterial stent S/P epidural steroid injection Onset Date: 02/02/0401/04/ L4-5, 02/02/04 L5-S1 Status post subacromial decompression Onset Date: ~2009 Family History: Family History (Last Reviewed 11/06/19 @ 20:00 by SIERRA Handy) Aunt Cancer maternal and paternal-breast ca Father , age 66-heart disease Heart disease quad by-pass CVA (cerebral vascular accident) Hypertension Grandfather Myocardial infarction maternal Grandfather Myocardial infarction paternal Grandmother Dementia maternal Grandmother Heart disease paternal Mother Diabetes CHF (congestive heart failure) Hypertension Hyperlipemia Heart disease Osteoarthritis Sister Gout Sister Hypertension Hypothyroidism Osteoarthritis Sleep apnea Social History: (Last Reviewed 11/06/19 @ 20:00 by SIERRA Handy) Social History: Marital status: household members: spouse number of children: 1 current occupational status: disabled Highest education level completed: Associate degree: occupat Service: No Tobacco: Smoking Status: Current every day smoker tobacco type: cigarettes Smoking cigarettes per day: 10 quit status: considering quitting Alcohol: alcohol intake: never Substance Use: substance use type: does not use Dietary Habits: caffeine: No Personal Safety: victim of physical abuse: No victim of emotional abuse: No Physical Exam - Physical Exam General Appearance: Present: wd/wn, alert, mild distress Head Exam: Present: normal inspection, no evidence of injury Eye Exam: Normal inspection: bilateral Neck: Present: normal inspection Respiratory: Present: no respiratory distress, accessory muscle use - mild, decreased breath sounds, wheezing - diffuse expiratory bases Cardiovascular/Chest: Present: regular rate, rhythm, no murmur Gastrointestinal/Abdominal: Present: normal bowel sounds, nontender, nondistended, soft, no organomegaly Extremity Exam: Present: no edema Neurological Exam: Present: alert, oriented, normal mood/affect, no motor/sensory deficits Skin Exam: Present: normal color, warm/dry Progress - Date and Time Seen: Date and Time: 11/06/19 20:55 Discussed results of testing with patient. Feel that should admit patient for COPD exacerbation due to minimal improvement to air exchange following inhaler use as well as patient fever and hypoxia, SpO2 <90% on RA. Patient agrees with plan of care. 11/06/19 21:02 Case discussed with , due to azithro allergy requests to proceed with Doxycycline as well as requests steroid burst for possible pneumonia. Instructed that rapid COVID testing pending. 11/06/19 22:18 COVID testing was negative on rapid screen. We will also add Macrobid to treatment course as patient is positive for nitrate on UA. - Results and Orders Patient's Lab Results:: I have reviewed the patient's lab results. - Vital Signs Patient's Vital Signs:: I have reviewed the patient's vital signs. Vital Signs: Vital Signs 11/06/19 18:56 Temperature 38.0 C Pulse Rate 89 Respiratory Rate 20 Blood Pressure 144/72 O2 Sat by Pulse Oximetry 94 - EKG EKG #1 EKG: NSR EKG read: Reviewed by me EKG Comments: No ectopy or acute ischemic change. - X-Ray X-Ray #1 X-Ray: chest Interpretation: Reviewed by me X-ray Comments: No acute cardiopulmonary findings. No focal infiltrate noted. - Progress/Reassessment Chief Complaint: Fever Progress:: Unchanged Departure Clinical Impression: COPD with exacerbation, Hypoxia Fever Qualifiers: Fever type: unspecified Qualified Code(s): R50.9 - Fever, unspecified UTI (urinary tract infection) Qualifiers: Urinary tract infection type: site unspecified Hematuria presence: without hematuria Qualified Code(s): N39.0 - Urinary tract infection, site not specified - Departure Disposition: Still a patient Condition: Stable
[2019-11-06 19:59] LABS: Hematocrit 46.7 % (37.0-47.0); Hemoglobin 15.4 gm/dL (12.5-16.0); Mean Cell Volume 90.3 fl (78-100); Mean Corpuscular Hemoglobin 29.8 pg (27-31); Mean Platelet Volume 9.6 fl (8-12.5); Neutrophil # 7.2 K/mm3 (1.3-6.0); Neutrophil % 74.4 % (42-75.0); Platelet Count 287 K/mm3 (150-450); Red Blood Count 5.17 M/mm3 (4.2-5.4); Red Cell Distribution Width 14.5 % (11.5-14.0); White Blood Count 9.7 K/mm3 (4.0-10.5)
[2019-11-06] MEDS ORDERED: ACETAMINOPHEN 500 MG TABLET PO ONE (20:01)
[2019-11-06] MEDS ORDERED: NORMAL SALINE 1,000 ML IV PRN (20:08)
[2019-11-06 20:18] LABS: ALT 47 U/L (19-67); AST 58 U/L (0-48); Albumin * 3.8 gm/dl (3.4-5.0); Alkaline Phosphatase * 113 U/L (50-170); BUN/Creatinine Ratio 12.3 (9.0-21.6); Bilirubin, Total 0.3 mg/dL (0.0-1.1); Blood Urea Nitrogen 10 mg/dL (3-23); Ca. Corrected For Albumin 8.7 mg/dL (8.4-10.2); Calcium * 8.9 mg/dL (7.9-10.9); Total Protein 8.5 gm/dL (6.2-8.2); Troponin I Less than 0.017 ng/mL (0.00-0.10)
[2019-11-06 20:40] LABS: Anion Gap 12.3 mmol/L (6.8-13.8); Carbon Dioxide 27.4 mmol/L (24-32.6); Chloride 100 mmol/L (97-106); Glucose * 119 mg/dL (70-110); Potassium 3.7 mmol/L (3.4-4.6); Sodium 136 mmol/L (132-142)
[2019-11-06] MEDS ORDERED: DOXYCYCLINE HYCLATE 100 MG TABLET PO ONE (20:59)
[2019-11-06] MEDS ORDERED: METHYLPREDNISOLONE SOD SUCC/PF 125 MG/2 ML VIAL IV ONE (21:00)
[2019-11-06 21:40] LABS: Urine Appearance Cloudy (CLEAR); Urine Bilirubin Negative (NEGATIVE); Urine Blood 25 /ul (NEGATIVE); Urine Color Yellow; Urine Ketone Negative (NEGATIVE); Urine Nitrite Positive (NEGATIVE); Urine Protein Negative (NEGATIVE); Urine Urobilinogen Normal (NORMAL)
[2019-11-06 21:41] LABS: Urine Bacteria 2+; Urine RBC TRACE /hpf (0-5); Urine WBC None Seen /hpf (0-5)
[2019-11-06] MEDS: NITROFURANTOIN/NITROFURAN MAC 100 MG CAPSULE PO SCH (22:23)
[2019-11-07] MEDS: ACETAMINOPHEN 500 MG TABLET PO PRN ×2 (06:59→23:09)
--- NOTE | 2019-11-07 08:34 | HP ---
Chief Complaint - Chief Complaint Date of Service: 11/07/19 Time of Service: 08:33 Chief Complaint: Cough, fever History of Present Illness: Patient with a past medical history of a mild case of COPD presenting to the ER with 1 day of cough and fever. Her T-max was 102 at home. She reports smoking for quite a while. She denies chest pain, but did have some back pain. Her appetite is decreased. She tried Mucinex at home, but her cough persists. In the ED, chest x-ray is negative and white blood cell count is not elevated. Lactate and pro calcitonin were normal. COVID test is negative. She did however require oxygen. She was saturating in the upper 80s on room air, improved with 2 L oxygen via nasal cannula. Respiratory rate was increased in the ED in the upper 20s. She was also tachycardic in the lower 100s while in the ED. This morning on my assessment, respiratory rate and heart rate have improved. She is currently saturating with 1 L of oxygen. She reports not feeling any better today than she did yesterday. She is unable to rest because of her cough. She had another fever this morning. Urinalysis was positive for 2+ bacteria and nitrates. She was started on Macrobid in the ED. Medical History (Last Reviewed 11/06/19 @ 20:00 by SIERRA Handy) Neck pain (Chronic) Shoulder pain (Chronic) Onset Date: Unknown left Panic attack (Chronic) Onset Date: ~04/02/17 Hypothyroidism (Chronic) Onset Date: Unknown Hyperlipidemia (Chronic) Onset Date: ~07/29/16 High risk medication use (Chronic) Onset Date: ~07/29/16 Graves disease (Chronic) Onset Date: ~1990 Fatigue (Chronic) Onset Date: Unknown Diabetes (Chronic) Onset Date: ~07/29/16 Depression (Chronic) Onset Date: ~01/15/17 Anxiety disorder (Chronic) Onset Date: ~01/15/17 Chest pain of unknown etiology Onset Date: Unknown Hearing loss Onset Date: Unknown Influenza vaccination declined Onset Date: ~06/09/18 Intermittent claudication Onset Date: Unknown Joint pain Onset Date: Unknown Leukocytosis Onset Date: Unknown Bilateral femoral artery stenosis Toxic shock syndrome Onset Date: ~1979 Surgical History: Surgical History (Last Reviewed 11/06/19 @ 20:00 by SIERRA Handy) History of laparoscopic appendectomy Onset Date: 06/03/19 [place] H/O colonoscopy Onset Date: 07/05/09 07/05/09 B[place]-tubular adenoma H/O tubal ligation Onset Date: ~1990 History of arthroscopic surgery of shoulder Onset Date: 03/25/10 Kymberly Pino-efharley shoulder arthroscopy/labral repair/subacromial decompression/resection distal clavicle History of cholecystectomy Onset Date: ~1990 History of radiation therapy Onset Date: ~08/1990 to deplete thyroid History of shoulder surgery Onset Date: 12/10/11 [facility]-left fusion with OC bone graft Previous section Onset Date: 01/13/78 S/P arterial stent S/P epidural steroid injection Onset Date: 02/02/04 01/05/04 L4-5, 02/02/04 L5-S1 Status post subacromial decompression Onset Date: ~2009 Family History: Family History (Last Reviewed 11/06/19 @ 20:00 by SIERRA Handy) Aunt Cancer maternal and paternal-breast ca Father , age 66-heart disease Heart disease quad by-pass CVA (cerebral vascular accident) Hypertension Grandfather Myocardial infarction maternal Grandfather Myocardial infarction paternal Grandmother Dementia maternal Grandmother Heart disease paternal Mother Diabetes CHF (congestive heart failure) Hypertension Hyperlipemia Heart disease Osteoarthritis Sister Gout Sister Hypertension Hypothyroidism Osteoarthritis Sleep apnea Social History: (Last Reviewed 11/06/19 @ 20:00 by SIERRA Handy) Social History: Marital status: household members: spouse number of children: 1 current occupational status: disabled Highest education level completed: Associate degree: occupat Service: No Tobacco: Smoking Status: Current every day smoker tobacco type: cigarettes Smoking cigarettes per day: 10 quit status: considering quitting Alcohol: alcohol intake: never Substance Use: substance use type: does not use Dietary Habits: caffeine: No Personal Safety: victim of physical abuse: No victim of emotional abuse: No Review Of Systems (GEN) - Review of Systems Generalized/Overall Review: Present: Fever Respiratory: Present: Cough. Absent: Wheezing Cardiac: Absent: Chest Pain, Edema Abdominal: Present: Other - Decreased appetite. Absent: Vomiting Genitourinary: Present: No Symptoms Reported Musculoskeletal: Present: No Symptoms Reported Neurological: Present: No Symptoms Reported Skin: Present: No Symptoms Reported Immunizations: IMMUNIZATION HX Immunizations Up to Date Yes History of Influenza Vaccine No Hx Pneumococcal Vaccination No Allergies/Adverse Reactions: Allergies Allergy/AdvReac Type Severity Reaction Status Date / Time azithromycin AdvReac Severe nausea/vomi Verified 11/06/19 22:40 ting erythromycin base AdvReac Severe upset Verified 11/06/19 22:40 stomach lisinopril AdvReac Severe upset Verified 11/06/19 22:40 stomach atorvastatin AdvReac Intermediate stomach Verified 11/06/19 22:40 upset duloxetine AdvReac Unknown unknown Verified 11/06/19 22:40 Home Medications: HOME MEDICATIONS aspirin 81 mg tablet,delayed release 81 mg PO DAILY 03/01/19 [Last Taken 06/03/19] evolocumab 140 mg/mL subcutaneous pen injector 140 mg SUBCUT Q2W 03/01/19 [Last Taken Unknown] gemfibrozil 600 mg tablet 600 mg PO BID 03/01/19 [Last Taken Unknown] lorazepam 1 mg tablet 1 mg PO TID #90 tab 09/19/19 [Last Taken Unknown] levothyroxine 112 mcg tablet 112 mcg PO DAILY #90 tab 09/20/19 [Last Taken Unknown] Yixor-Lgdoeuc-Shevtbcs Tablet DAILY 11/06/19 [Last Taken Unknown] Exam - Exam Vital Signs: Vital Signs - Last Taken Temp 38.3 C H 11/07/19 06:28 Pulse 87 11/07/19 06:28 Resp 16 11/07/19 06:28 BP 147/61 11/07/19 06:28 Pulse Ox 95 11/07/19 08:06 Constitutional: Present: Alert, Oriented x3, Cooperative, No distress, Looks Older than stated age Respiratory: Present: no accessory muscle use, rhonchi - Right posterior chest, No wheezing Cardiovascular/Chest: Present: regular rate, rhythm Abdomen: Present: nontender Extremity: Absent: lower extremity edema Neurologic: Present: normal mood/affect Appearance: Present: appropriate insight Eye contact: Present: cooperative Diagnostic Studies: Abnormal Lab Results 11/06/19 11/06/19 11/06/19 Range/Units 19:55 19:55 21:12 RDW 14.5 H (11.5-14.0) % Lymphocytes % 16.8 L (20-51) % Neutrophils # 7.2 H (1.3-6.0) K/mm3 Random Glucose 119 H (70-110) mg/dL AST 58 H (0-48) U/L Total Protein 8.5 H (6.2-8.2) gm/dL Urine Blood 25 H (NEGATIVE) /ul Urine Nitrate Positive H (NEGATIVE) Urine Bacteria 2+ H (NONE) Microbiology 11/06/19 21:12 Urine Culture - Preliminary Urine,Clean Catch Gram Negative Bacilli Laboratory Results WBC 9.7 K/mm3 (4.0-10.5) 11/06/19 19:55 RBC 5.17 M/mm3 (4.2-5.4) 11/06/19 19:55 Hgb 15.4 gm/dL (12.5-16.0) 11/06/19 19:55 Hct 46.7 % (37.0-47.0) 11/06/19 19:55 MCV 90.3 fl (78-100) 11/06/19 19:55 MCH 29.8 pg (27-31) 11/06/19 19:55 MCHC 33.0 g/dl (32-36) 11/06/19 19:55 RDW 14.5 % (11.5-14.0) H 11/06/19 19:55 Plt Count 287 K/mm3 (150-450) 11/06/19 19:55 MPV 9.6 fl (8-12.5) 11/06/19 19:55 Immature Gran % (Auto) 0.30 % (0.001-0.429) 11/06/19 19:55 Immature Gran # (Auto) 0.03 K/mm3 (0.000-0.0310) 11/06/19 19:55 Neutrophils % 74.4 % (42-75.0) 11/06/19 19:55 Lymphocytes % 16.8 % (20-51) L 11/06/19 19:55 Monocytes % 7.9 % (0.0-9) 11/06/19 19:55 Eosinophils % 0.2 % (0.0-3.0) 11/06/19 19:55 Basophils % 0.4 % (0.0-1.0) 11/06/19 19:55 Nucleated RBC % 0.0 k/mm3 (0-1) 11/06/19 19:55 Neutrophils # 7.2 K/mm3 (1.3-6.0) H 11/06/19 19:55 Lymphocytes # 1.64 k/mm3 (1.5-3.5) 11/06/19 19:55 Monocytes # 0.8 k/mm3 (0.0-1.0) 11/06/19 19:55 Eosinophils # 0.0 k/mm3 (0.0-0.7) 11/06/19 19:55 Absolute Basophils 0.0 k/mm3 (0.0-0.1) 11/06/19 19:55 Sodium 136 mmol/L (132-142) 11/06/19 19:55 Plasma Sodium 136 mmol/L (130-142) 11/06/19 19:55 Potassium 3.7 mmol/L (3.4-4.6) 11/06/19 19:55 Chloride 100 mmol/L (97-106) 11/06/19 19:55 Carbon Dioxide 27.4 mmol/L (24-32.6) 11/06/19 19:55 Anion Gap 12.3 mmol/L (6.8-13.8) 11/06/19 19:55 BUN 10 mg/dL (3-23) 11/06/19 19:55 Creatinine 0.81 mg/dL (0.4-1.4) 11/06/19 19:55 Est GFR (Non-Af Amer) 77 mL/min (60-130) 11/06/19 19:55 BUN/Creatinine Ratio 12.3 (9.0-21.6) 11/06/19 19:55 Random Glucose 119 mg/dL (70-110) H 11/06/19 19:55 Lactic Acid, Venous 1.0 mmol/L (0.4-2.0) 11/06/19 19:55 Calcium 8.9 mg/dL (7.9-10.9) 11/06/19 19:55 Calcium Adj for Albumin 8.7 mg/dL (8.4-10.2) 11/06/19 19:55 Total Bilirubin 0.3 mg/dL (0.0-1.1) 11/06/19 19:55 AST 58 U/L (0-48) H 11/06/19 19:55 ALT 47 U/L (19-67) 11/06/19 19:55 Alkaline Phosphatase 113 U/L (50-170) 11/06/19 19:55 Troponin I Less than 0.017 ng/mL (0.00-0.10) 11/06/19 19:55 Total Protein 8.5 gm/dL (6.2-8.2) H 11/06/19 19:55 Albumin 3.8 gm/dl (3.4-5.0) 11/06/19 19:55 Procalcitonin 0.19 ng/mL (0.05-0.50) 11/06/19 19:55 Urine Color Yellow 11/06/19 21:12 Urine Appearance Cloudy (CLEAR) 11/06/19 21:12 Urine pH 6.0 pH (5.0-7.0) 11/06/19 21:12 Ur Specific [place] 1.020 SP.GR. (1.005-1.010) 11/06/19 21:12 Urine Protein Negative mg/dL (NEGATIVE) 11/06/19 21:12 Urine Glucose (UA) Negative mg/dL (NEGATIVE) 11/06/19 21:12 Urine Ketones Negative mg/dL (NEGATIVE) 11/06/19 21:12 Urine Blood 25 /ul (NEGATIVE) H 11/06/19 21:12 Urine Nitrate Positive (NEGATIVE) H 11/06/19 21:12 Urine Bilirubin Negative mg/dl (NEGATIVE) 11/06/19 21:12 Urine Urobilinogen Normal EU/dl (NORMAL) 11/06/19 21:12 Ur Leukocyte Esterase Negative /ul (NEGATIVE) 11/06/19 21:12 Urine RBC Trace /hpf (0-5) 11/06/19 21:12 Urine WBC None seen /hpf (0-5) 11/06/19 21:12 Ur Epithelial Cells 0-5 /hpf (0-5) 11/06/19 21:12 Urine Bacteria 2+ (NONE) H 11/06/19 21:12 Urine Culture Comments Culture to follow 11/06/19 21:12 SARS-CoV-2 (PCR) Not detected (ND) 11/06/19 20:48 Assessment/Plan - Assessment/Plan (1) COPD with exacerbation Assessment: She is febrile, coughing, with rhonchi on the right. Negative chest x-ray. Will treat for COPD exacerbation with doxycycline and steroids. She received 125 mg IV Solu-Medrol last night, and will continue 40 mg prednisone daily. We will add guaifenesin/dextromethorphan for her cough and continue PRN Tylenol for her fever. She is still requiring oxygen this morning and does not feel better from yesterday. We will keep her tonight and possible DC tomorrow. Attempt to wean from oxygen. Problem: Acute (2) UTI (urinary tract infection) Assessment: Urinalysis showed 2+ bacteria and nitrates. She has been started on Macrobid with urine culture pending. With only 2+ bacteria she may actually not having a urinary tract infection, and if culture is negative will discontinue antibiotics. Problem: Acute Qualifiers: Urinary tract infection type: site unspecified Hematuria presence: without hematuria Qualified Code(s): N39.0 - Urinary tract infection, site not specified (3) Hypothyroid Assessment: Continue home levothyroxine. Problem: Chronic Qualifiers: Hypothyroidism type: acquired Qualified Code(s): E03.9 - Hypothyroidism, unspecified (4) HTN (hypertension) Assessment: Hypertension is listed in her problem list however she does not have medications for it. The diagnosis may be inaccurate. She had some elevated blood pressures in the ER, but normal this morning. No antihypertensives needed currently. Problem: Chronic Qualifiers: Hypertension type: essential hypertension Qualified Code(s): I10 - Essential (primary) hypertension (5) Anxiety Assessment: Continue home Ativan. Problem: Acute
[2019-11-07] MEDS: ASPIRIN 81 MG TABLET.DR PO SCH (09:05)
[2019-11-07] MEDS: LEVOTHYROXINE SODIUM 112 MCG TABLET PO SCH (09:05)
[2019-11-07] MEDS: NITROFURANTOIN/NITROFURAN MAC 100 MG CAPSULE PO SCH ×2 (09:06→20:06)
[2019-11-07] MEDS: DOXYCYCLINE HYCLATE 100 MG TABLET PO SCH ×2 (09:06→20:06)
[2019-11-07] MEDS: guaiFENesin/DEXTROMETHORPHAN SYRUP PO PRN ×3 (09:12→20:08)
[2019-11-07] MEDS: LORazepam 1 MG TABLET PO SCH ×4 (09:12→20:06)
[2019-11-07] MEDS: predniSONE 20 MG TABLET PO SCH (10:08)
[2019-11-08] MEDS: ACETAMINOPHEN 500 MG TABLET PO PRN ×3 (05:24→18:46)
[2019-11-08] MEDS: guaiFENesin/DEXTROMETHORPHAN SYRUP PO PRN (05:25)
[2019-11-08] MEDS: LEVOTHYROXINE SODIUM 112 MCG TABLET PO SCH (06:30)
[2019-11-08] MEDS: LORazepam 1 MG TABLET PO SCH ×3 (06:30→20:09)
[2019-11-08] MEDS: ALBUTEROL SULFATE 2.5 MG/0.5 ML VIAL.NEB IH PRN ×3 (06:48→20:11)
[2019-11-08] MEDS: predniSONE 20 MG TABLET PO SCH (09:23)
[2019-11-08] MEDS: DOXYCYCLINE HYCLATE 100 MG TABLET PO SCH ×2 (09:23→20:09)
[2019-11-08] MEDS: ASPIRIN 81 MG TABLET.DR PO SCH (09:23)
[2019-11-08] MEDS: NITROFURANTOIN/NITROFURAN MAC 100 MG CAPSULE PO SCH (09:27)
--- NOTE | 2019-11-08 21:50 | PN ---
Subjective - Date and Time Seen Date: 11/08/19 Time: 10:24 Subjective Narrative: Patient is sitting in bed, she endorses a cough and some shortness of breath. She denies chest pain. She has been fevering on antobiotics for URI and UTI. Other vital signs have been stable. Her o2 is maintained on oxygen supplementation. She has no concerns at this time. Objective - Review of Systems Generalized/Overall Review: Reports: Fever, Fatigue EENTM: Reports: No Symptoms Reported Respiratory: Reports: Cough, Shortness of Breath Cardiac: Reports: No Symptoms Reported Abdominal: Denies: Nausea, Vomiting, Abdominal Pain Genitourinary Symptoms: Reports: Frequency. Denies: Burning, Urgency Musculoskeletal Complaints: Denies: Back Pain, Neck Pain Neurological: Reports: No Symptoms Reported Skin: Reports: No Symptoms Reported Endocrine: Reports: No Symptoms Reported - Vitals Vitals: Last Vital Signs Temp 38.6 C H 11/08/19 21:00 Pulse 87 11/08/19 21:00 Resp 20 11/08/19 21:00 BP 120/58 11/08/19 21:00 Pulse Ox 90 L 11/08/19 21:00 - Exam Constitutional: Present: Alert, Oriented x3, Elderly ENT Exam: Present: hearing grossly normal. Absent: nasal congestion, nasal drainage Neck: Present: full range of motion, supple Respiratory: Present: no respiratory distress, rhonchi - right lower lung field Cardiovascular/Chest: Present: regular rate, rhythm, no murmur Abdomen: Present: soft, nontender, nondistended. Absent: suprapubic tenderness Skin Exam: Present: normal color, warm/dry Appearance: Present: appropriate appearance, appropriate insight Eye contact: Present: cooperative, good eye contact Thoughts: Present: normal thought pattern, normal mood /affect Assessment/Plan Plan Narrative: Patient continued to fever. Respiratory appears to be the source, added rocephin to doxycycline to improve coverage and also treat UTI. Stop macrobid. Covid negative. Chest XR unremarkable. Prednisone for COPD exacerbation. Repeat bllod work in the am. Conitnue O2 supplementation until sats improve and will wean as tolerated. Tylenol as needed for fevers. HTN stable, continue to current tx plan Heart healthy diet. SCDs for DVT ppx. Nurse to call with any questions or concerns. - Problems/Diagnosis (1) COPD with exacerbation Problem: Acute (2) Hypoxia Problem: Acute (3) Fever Problem: Acute Qualifiers: Fever type: unspecified Qualified Code(s): R50.9 - Fever, unspecified (4) Nausea Problem: Acute (5) Hypertension Problem: Acute Qualifiers: Hypertension type: essential hypertension Qualified Code(s): I10 - Essential (primary) hypertension
[2019-11-09] MEDS: ACETAMINOPHEN 500 MG TABLET PO PRN ×2 (01:15→11:08)
[2019-11-09] MEDS: ALBUTEROL SULFATE 2.5 MG/0.5 ML VIAL.NEB IH PRN ×4 (02:12→16:51)
[2019-11-09] MEDS: LEVOTHYROXINE SODIUM 112 MCG TABLET PO SCH (06:29)
[2019-11-09] MEDS: LORazepam 1 MG TABLET PO SCH ×3 (06:29→21:03)
[2019-11-09] MEDS: PROMETHAZINE HCL PO PRN ×3 (07:59→22:16)
[2019-11-09] MEDS: CODEINE PO PRN ×3 (07:59→22:16)
[2019-11-09] MEDS: predniSONE 20 MG TABLET PO SCH (08:01)
[2019-11-09] MEDS: ASPIRIN 81 MG TABLET.DR PO SCH (08:01)
[2019-11-09 08:02] LABS: Hematocrit 44.5 % (37.0-47.0); Hemoglobin 14.2 gm/dL (12.5-16.0); Mean Cell Volume 91.6 fl (78-100); Mean Corpuscular Hemoglobin 29.2 pg (27-31); Mean Corpuscular Hgb Conc 31.9 g/dl (32-36); Mean Platelet Volume 9.5 fl (8-12.5); Neutrophil % 70.2 % (42-75.0); Platelet Count 242 K/mm3 (150-450); Red Blood Count 4.86 M/mm3 (4.2-5.4); Red Cell Distribution Width 14.8 % (11.5-14.0); White Blood Count 14.3 K/mm3 (4.0-10.5)
[2019-11-09] MEDS: DOXYCYCLINE HYCLATE 100 MG TABLET PO SCH ×2 (08:02→21:02)
[2019-11-09 08:13] LABS: Anion Gap 9.9 mmol/L (6.8-13.8); BUN/Creatinine Ratio 20.5 (9.0-21.6); Calcium * 9.2 mg/dL (7.9-10.9); Carbon Dioxide 29.1 mmol/L (24-32.6); Estimated Creat Clear 60.7
--- NOTE | 2019-11-09 23:14 | PN ---
Subjective - Date and Time Seen Date: 11/09/19 Time: 16:00 Subjective Narrative: Starting to feel better today. Breathing easier and no longer requiring o2. Still on rocephin and zithromax. Still fevering though. Other yancey vss. Cough medicine started yesterday has helped significantly. Objective - Review of Systems Generalized/Overall Review: Reports: Fever, Fatigue EENTM: Reports: No Symptoms Reported Respiratory: Reports: Cough, Shortness of Breath, Wheezing Cardiac: Denies: Chest Pain, Palpitations Abdominal: Denies: Nausea, Vomiting, Abdominal Pain Genitourinary Symptoms: Denies: Burning, Urgency, Frequency - Vitals Vitals: Last Vital Signs Temp 37.3 C 11/09/19 18:49 Pulse 86 11/09/19 18:49 Resp 19 11/09/19 18:49 BP 125/50 11/09/19 18:49 Pulse Ox 95 11/09/19 18:49 - Abnormal Lab Findings Abnormal Lab Findings: Abnormal Lab Results 11/09/19 Range/Units 07:44 WBC 14.3 H D (4.0-10.5) K/mm3 MCHC 31.9 L (32-36) g/dl RDW 14.8 H (11.5-14.0) % Immature Gran # (Auto) 0.06 H (0.000-0.0310) K/mm3 Neutrophils # 10.0 H (1.3-6.0) K/mm3 - Exam Constitutional: Present: Alert, Oriented x3, Cooperative, Elderly ENT Exam: Present: hearing grossly normal. Absent: nasal congestion, nasal drainage Respiratory: Present: no respiratory distress, wheezing - RLL Cardiovascular/Chest: Present: normal peripheral pulses, regular rate, rhythm Abdomen: Present: soft, nontender, nondistended Skin Exam: Present: normal color, warm/dry Assessment/Plan Plan Narrative: Patient continued to fever. Respiratory appears to be the source, but also improving today after being on rocephin and doxycycline. Covid negative. Chest XR unremarkable. Continue Prednisone for COPD exacerbation. Blood work stable. UTI also being covered No longer needing o2 administration to maintain sats. Tylenol as needed for fevers. HTN stable, continue to current tx plan Heart healthy diet. SCDs for DVT ppx. Nurse to call with any questions or concerns. - Problems/Diagnosis (1) COPD with exacerbation Problem: Acute (2) Hypoxia Problem: Acute (3) Fever Problem: Acute Qualifiers: Fever type: unspecified Qualified Code(s): R50.9 - Fever, unspecified (4) Nausea Problem: Acute (5) Hypertension Problem: Acute Qualifiers: Hypertension type: essential hypertension Qualified Code(s): I10 - Essential (primary) hypertension
[2019-11-10] MEDS: LORazepam 1 MG TABLET PO SCH ×2 (08:00→12:47)
[2019-11-10] MEDS: LEVOTHYROXINE SODIUM 112 MCG TABLET PO SCH (08:00)
[2019-11-10] MEDS: ALBUTEROL SULFATE 2.5 MG/0.5 ML VIAL.NEB IH PRN ×2 (08:05→13:54)
[2019-11-10] MEDS: ASPIRIN 81 MG TABLET.DR PO SCH (09:45)
[2019-11-10] MEDS: predniSONE 20 MG TABLET PO SCH (09:45)
[2019-11-10] MEDS: DOXYCYCLINE HYCLATE 100 MG TABLET PO SCH (09:45)
--- NOTE | 2019-11-10 13:54 | DS ---
(1) COPD with exacerbation Problem: Resolved (2) Hypoxia Problem: Resolved (3) Fever Problem: Resolved Qualifiers: Fever type: unspecified Qualified Code(s): R50.9 - Fever, unspecified (4) Nausea Problem: Resolved (5) Hypertension Problem: Chronic Qualifiers: Hypertension type: essential hypertension Qualified Code(s): I10 - Essential (primary) hypertension (6) UTI (urinary tract infection) Problem: Acute Qualifiers: Urinary tract infection type: acute cystitis Date of Discharge:: 11/10/19 Hospital Course: 59 year-old female history of COPD presented to ER with 1 day of fever and cough to. Patient continued fever here intermittently for the first day or 2 after being admitted but has since been afebrile for close to 48 hours. She was started on doxycycline and prednisone for COPD exacerbation, Macrobid for UTI. Due to her continued fevers, she was also started on Rocephin with Macrobid being stopped. Rocephin helped cover her pulmonary infection as well as treat her UTI. She has been on this for 3 days. She will go home with 2 more day of doxycycline and 4 more days of cefdinir. She will have 2 more days of pred nisone. We will also send in some albuterol for her nebulizer at home to help with her wheezing which is significant improved. She initially was requiring oxygen to maintain sats but has since been able to be on room air and keep her O2 above 88%. She is up and about, tolerating p.o. well, has no concerns at this time. No other changes made to her chronic home medications. Patient was COVID tested, negative. Most of her lab work was unremarkable aside from a UA that was positive for blood, nitrates, and urine bacteria. White count did elevate after being on prednisone. She was discharged home in stable condition. She will follow-up in 2 weeks Procedures Performed: none Results and Findings: Pending Mircobiology Results 11/06/19 20:20 Blood Blood Culture - Preliminary NO GROWTH AFTER 48 HOURS 11/06/19 19:55 Blood Blood Culture - Preliminary NO GROWTH AFTER 48 HOURS Lab Pending Results 11/06/19 19:55: Procalcitonin 0.19 11/06/19 19:55: WBC 9.7, RBC 5.17, Hgb 15.4, Hct 46.7, MCV 90.3, MCH 29.8, MCHC 33.0, RDW 14.5 H, Plt Count 287, MPV 9.6, Immature Gran % (Auto) 0.30, Immature Gran # (Auto) 0.03, Neutrophils % 74.4, Lymphocytes % 16.8 L, Monocytes % 7.9, Eosinophils % 0.2, Basophils % 0.4, Nucleated RBC % 0.0, Neutrophils # 7.2 H, Lymphocytes # 1.64, Monocytes # 0.8, Eosinophils # 0.0, Absolute Basophils 0.0 11/06/19 19:55: Sodium 136, Plasma Sodium 136, Potassium 3.7, Chloride 100, Carbon Dioxide 27.4, Anion Gap 12.3, BUN 10, Creatinine 0.81, Est GFR (Non-Af Amer) 77, BUN/Creatinine Ratio 12.3, Random Glucose 119 H, Calcium 8.9, Calcium Adj for Albumin 8.7, Total Bilirubin 0.3, AST 58 H, ALT 47, Alkaline Phosphatase 113, Troponin I Less than 0.017, Total Protein 8.5 H, Albumin 3.8 11/06/19 19:55: Lactic Acid, Venous 1.0 11/06/19 20:48: SARS-CoV-2 (PCR) Not detected 11/06/19 21:12: Urine Color Yellow, Urine Appearance Cloudy, Urine pH 6.0, Ur Specific [employer] 1.020, Urine Protein Negative, Urine Glucose (UA) Negative, Urine Ketones Negative, Urine Blood 25 H, Urine Nitrate Positive H, Urine Bilirubin Negative, Urine Urobilinogen Normal, Ur Leukocyte Esterase Negative, Urine RBC Trace, Urine WBC None seen, Ur Epithelial Cells 0-5, Urine Bacteria 2+ H, Urine Culture Comments Culture to follow 11/09/19 07:44: WBC 14.3 H D, RBC 4.86, Hgb 14.2, Hct 44.5, MCV 91.6, MCH 29.2, MCHC 31.9 L, RDW 14.8 H, Plt Count 242, MPV 9.5, Immature Gran % (Auto) 0.40, Immature Gran # (Auto) 0.06 H, Neutrophils % 70.2, Lymphocytes % 23.2, Monocytes % 6.0, Eosinophils % 0.0, Basophils % 0.2, Nucleated RBC % 0.0, Neutrophils # 10.0 H, Lymphocytes # 3.32, Monocytes # 0.9, Eosinophils # 0.0, Absolute Basophils 0.0 11/09/19 07:44: Sodium 138, Plasma Sodium 138, Potassium 4.0, Chloride 103, Carbon Dioxide 29.1, Anion Gap 9.9, BUN 16 D, Creatinine 0.78, Est GFR (Non-Af Amer) 80, BUN/Creatinine Ratio 20.5, Random Glucose 110, Calcium 9.2 Discharge Location: Home Disposition: Home self-care Condition: Stable Discharge Activity: Activity as tolerated Discharge Diet: Low fat/chol Referrals: Shahzad Lopez DO [Primary Care Provider] - Two Weeks Problem Oriented Discharge Instructions to Patient/Family: Chronic Obstructive Pulmonary Disease Exacerbation, [id number], Urinary Tract Infection, Adult, Vyxe-ij-Upzy Prescriptions (Any new or edited meds): Albuterol Sulfate [Albuterol Sulfate 2.5 MG/0.5ML] 2.5 mg INHALATION Q6H PRN #30 vial.neb PRN Reason: Shortness Of Breath/Wheezing Transmission Status: Pending to [facility] #[id number] Cefdinir 300 mg PO BID #8 cap Transmission Status: Pending to [facility] #[id number] predniSONE [Prednisone] 40 mg PO DAILY #4 tab Transmission Status: Pending to [facility] #[id number] Doxycycline Hyclate [Vibratab] 100 mg PO BID #6 tab Transmission Status: Pending to [facility] #[id number] Complete Home Medications List: Complete Home Medication List: aspirin 81 mg tablet,delayed release 81 mg PO DAILY 03/01/19 evolocumab 140 mg/mL subcutaneous pen injector 140 mg SUBCUT Q2W 03/01/19 gemfibrozil 600 mg tablet 600 mg PO BID 03/01/19 lorazepam 1 mg tablet 1 mg PO TID #90 tab 09/19/19 levothyroxine 112 mcg tablet 112 mcg PO DAILY #90 tab 09/20/19 Jafzz-Feqlfoz-Tdsnumvf Tablet DAILY 11/06/19 Albuterol Sulfate [Albuterol Sulfate 2.5 MG/0.5ML] 2.5 mg INHALATION Q6H PRN #30 vial.neb 11/10/19 Cefdinir 300 mg PO BID #8 cap 11/10/19 Doxycycline Hyclate [Vibratab] 100 mg PO BID #6 tab 11/10/19 guaiFENesin [Mucinex] 1,200 mg PO BID #0 tablet.sa 11/10/19 predniSONE [Prednisone] 40 mg PO DAILY #4 tab 11/10/19 Forms: Patient Portal Registration
[2019-11-10 15:35] VITALS: BP 119/58
== END 2019-11-10 15:30 | disposition home or self-care (01) | DRG 191 ==
LOC: ER 18:51 → MS 18:51
PROVIDERS: ADMIT Family Medicine; ATTEND Family Medicine
CPT/HCPCS: 36415; 71010; 71045; 80048; 80053; 81001; 83605; 84145; 84484; 85025; 87040; 87077; 87086; 87186; 93005; 94640; 96365; 96375; 99284; 99285; C9803; G0378